=== PATIENT | female | born 1965 | race Caucasian/White ===

== ENCOUNTER 2017-09-12 11:30 | Outpatient (RCR) | payer OTHER, SELFPAY | END 2017-09-24 23:59 | LOC: NS 11:30 | PROVIDERS: Family Provider Family Medicine; PCP Family Medicine; Visit Provider Family Medicine | DX: E66.9 Obesity, unspecified (principal); Z68.34 Body mass index [BMI] 34.0-34.9, adult; Z71.3 Dietary counseling and surveillance | CPT/HCPCS: 97803 ==

== ENCOUNTER → 2017-10-01 16:45 | Outpatient (CLI) | payer OTHER, SELFPAY ==
--- NOTE | 2017-10-01 16:49 | RAD_ITS ---
XR Chest 2 Views INDICATION: pre op, hx of high blood pressure COMPARISON: None FINDINGS: Heart size and pulmonary vascularity are within normal limits. The lungs are clear without evidence of airspace consolidation or pleural effusion. The osseous structures are grossly unremarkable. RAD/Chest PA and Lateral IMPRESSION: No radiographic evidence of acute intrathoracic disease. at 1709 Reported and signed by: Jen Oliver MD Electronically Signed: Jen Oliver MD at 16:07 EST Tel , Service support ,
[2017-10-01 18:27] LABS: Anion Gap 9 (5-15); BUN 20 mg/dL (7-18); BUN/Creat Ratio 23.9 RATIO (10-20); Chloride 102 mmol/L (98-107); Creatinine, Serum 0.84 mg/dL (0.55-1.02); EST Glomerular Filtration Rate 76 mL/min (>60); Est Glom Filt Rate - Afr Amer 92 mL/min (>60); Glucose 79 mg/dL (74-106); Potassium 3.7 mmol/L (3.5-5.1); Sodium Level 136 mmol/L (136-145)
[2017-10-01 18:34] LABS: Absolute Lymphocyte Count 2.41 X10^3/ul (0.83-4.51); Absolute Neutrophil Count 6.9 X10^3/uL (2.0-7.7); Basophil# 0.01 X10^3/uL; Basophil% 0.1 % (0-1); Eosinophil# 0.23 X10^3/uL; Eosinophils% 2.2 % (0-5); Hematocrit 45.6 % (37-47); Hemoglobin 15.3 g/dl (12.0-15.0); Lymphocyte # 2.41 X10^3/ul (4.0); Lymphocyte % 23.1 % (19-41); Mean Corp Hgb Conc 33.6 g/gl (32-36); Mean Corpuscular Hgb 31.4 pg (27.0-32.0); Mean Corpuscular Volume 93.4 fL (81-99); Mean Platelet Vol. 9.9 fl (6.2-12.0); Monocyte# 0.89 X10^3/uL; Monocyte% 8.5 % (0-10); Platelet Count 311 K/mm3 (150-450); RBC Distribution Width CV 12.5 % (11.6-14.6); RBC Distribution Width SD 42.7 fl (35.1-43.9); Red Blood Count 4.88 M/mm3 (4.2-5.4); White Blood Count 10.5 K/mm3 (4.4-11.0)
[2017-10-01 18:39] LABS: POSITIVE COUNT NO; POSITIVE DIFFERENTIAL NO; POSITIVE MORPHOLOGY NO; Partial Thromboplast Time 25.2 Seconds (24.1-36.2); Prothrombin Time (Protime)PT. 12.7 SECONDS (11.7-14.9)
== END ==
PROVIDERS: Family Provider Family Medicine; PCP Family Medicine; Visit Provider Family Medicine
DX: Z01.818 Encounter for other preprocedural examination (principal); I10 Essential (primary) hypertension
CPT/HCPCS: 36415; 71046; 80048; 85025; 85610; 85730

== ENCOUNTER 2017-10-10 08:30 | Outpatient (RCR) | payer OTHER, SELFPAY | END 2017-10-22 23:59 | LOC: NS 08:30 | PROVIDERS: Family Provider Family Medicine; PCP Family Medicine; Visit Provider Family Medicine | DX: E66.01 Morbid (severe) obesity due to excess calories (principal); Z68.34 Body mass index [BMI] 34.0-34.9, adult; Z71.3 Dietary counseling and surveillance | CPT/HCPCS: 97803 ==

== ENCOUNTER 2017-10-21 05:50 | Day surgery (SDC) | payer OTHER, SELFPAY ==
--- NOTE | 2017-10-09 11:01 | PCM.HP.BLA ---
History and Physical DATE OF SERVICE: 10/21/2017 SCHEDULED PROCEDURE: Right total hip arthroplasty HISTORY OF PRESENT ILLNESS: This is a 51-year-old female who is been having ongoing pain in the right hip for approximately 3 years. She states over the last year and a half it is significantly worsened. Patient states her pain is aching, sharp, stabbing, and sore. Going up and down stairs, walking any amount of distance increases her pain. Rest and sitting is temporarily helpful. Getting dressed, doing housework, and shopping all increase her pain and has difficulty accomplishing these tasks. Patient has tried conservative measures including rest, ice, and elevation with temporary relief. Patient has also tried corticosteroid injection ?2 with minimal relief on the first injection and no relief from the second injection. She has tried formal physical therapy and home exercises with no relief in symptoms. She has tried oral medications including Aleve or Advil which only gives her temporary relief. After failing conservative measures and discussing all treatment options with Drs. Britton, the patient would like to proceed with a right total hip arthroplasty. Patient does have medical history pertinent for hypertension. She currently denies any chest pain, shortness of breath, fevers chills, recent infection. We are obtaining surgical clearance from patient's primary care physician Dr. Gross. REVIEW OF SYSTEMS: ROS: Const: Denies change in appetite, fever, hard of hearing, vision problems and weight change CV: Denies chest pain, heart murmur, irregular heartbeat and peripheral vascular disease. Resp: Denies asthma, cough, pneumonia, sleep apnea, SOB, tuberculosis and wheezing. GI: Denies constipation, diarrhea, difficulty swallowing, heartburn, nausea, bloody stools and vomiting. : . (F Genital Sx) Urinary: denies incontinence. Musculo: Reports limp, trouble walking and weakness, but denies leg swelling. Skin: Denies Raynaud's, history of shingles and tattoo. Neuro: Denies ambulatory dysfunction, dizziness, numbness/tingling and tremor. Psych: Denies anxiety, depression, insomnia, mental illness and stress. Jose Raul/Lymph: Denies anemia, bleeding/bruising tendency and past transfusion. Reviewed, no changes. PAST MEDICAL HISTORY: Advance Care Plan: No Advance Directives Effective Date: 09/15/2017 PMH: Medical Problems: Hypercholesterolemia, High Blood Pressure Accidents: None Surgical Hx: Breast Reduction - (2006) [facility] Anesthesia Complications: None Assistive Devices: None Reviewed, no changes. 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 Personal Habits: Cigarette Use: Never Smoked Cigarettes.Alcohol: Occasionally.Drug Use: Denies Use.Enjoy Exercising: Exercises 1-3 X/Week. Reviewed, no changes. VITALS: Ht: 66 Wt: 212lb Wt k.163 BMI: 34.2 BP: 152/80 Pulse: 60 Resp: 16 T: 97.8 T: 36.6C ALLERGIES: No Known Drug Allergy MEDICATIONS: Oxycodone HCL 5 mg 1-2 by mouth every 4 hours, Famotidine 20 mg 1 by mouth every day, MS Contin 15 mg 1 by mouth twice a day, Promethazine HCL 12.5 mg 1-2 tablets by mouth every 6 hours, Atenolol 50 mg 1 tab PO daily, Crestor 5 mg 1 tab PO daily, Lo Loestrin Fe 1 MG-10 mcg / 10 mcg 1 by mouth every day PRE-OP EXAM: General appearance:NORMAL Other: Eyes: Conjunctivae and lids: NORMAL Pupils: ERR Ears, Nose, Mouth, and Throat: NORMAL Other: Inspection of lips, teeth and gums: NORMAL Other: Neck: Examination of neck: no masses noted. Respiratory: Assessment of respiratory effort: NORMAL Other: Ausculation of lungs: clear to ausculation no wheeses, ronchi or rales. Cardiovascular: Ausculation of heart: regular rate and rhythem, no mummurs, gallops or rubs. Exam of carotid arteries: NORMAL Other: Gastrointestinal: Exam of abdomen: soft, nontender, nondistended bowel sounds present. Lymphatic: Palpation of nodes in neck: NORMAL Other: Palpation of nodes in Axillae: NORMAL Other: Neurological: see below Psychiatric: Orientation to time, place and person: NORMAL Other: Mood and affect: NORMAL Other: PHYSICAL EXAMINATION: Patient walks with an antalgic gait. Patient has increased pain with range of motion of the right hip. Pain is increased with any flexion and internal rotation. Patient has limited internal rotation to neutral and external rotation to 30?. Flexion to 80?. Sensations intact light touch. IMAGING STUDIES: Attained at [facility] [place] on October 08, 2017 including AP pelvis, AP right hip, and crossfire lateral right hip reveals severe osteoarthritis of the right hip with severe joint space narrowing, subchondral sclerosis, and osteophyte formation. No lytic or blastic lesions appreciated. No acute findings for fracture. IMPRESSION: 1. Severe right hip osteoarthritis 2. Hypertension 3. Hypercholesterolemia PLAN: Dr. Britton did discuss and review with the patient all treatment options including surgical versus nonsurgical. Patient wishes to proceed with above-stated procedure. Potential risks, benefits, and complications of this procedure were discussed in detail including but not limited to , infection, nerve and blood vessel damage, persistent pain, numbness, tingling, paresthesias, blood clot, pulmonary embolism, and requirement for further surgery. The patient expressed full understanding has no further questions for the doctor. Patient does agree to proceed with the above-stated procedure and has signed the surgery consent form. ___ I have re-examined the patient. There are no clinical changes since date of exam. ___ See progress notes for changes. ___ Dictated on admission Date: Time: Signature:
[2017-10-09 15:31] VITALS: BP 129/76; PULSE 67; RESP 16; TEMP 36.3; O2SAT 94; BMI 34.5
[2017-10-21] VITALS (10 sets, daily range): BP systolic 123–146; BP diastolic 68–93; PULSE 58–76; RESP 12–16; TEMP 36.1–36.8; O2SAT 93–98; BMI 34.5
[2017-10-21] MEDS: Acetaminophen 500 MG Tablet 1000 MG PO ×2 (06:33→12:51)
[2017-10-21] MEDS: oxyCODONE HCl Cr 10 MG Tablet PO (06:33)
[2017-10-21] MEDS: Celecoxib 200 MG Capsule 400 MG PO (06:33)
[2017-10-21] MEDS: Lactated Ringers 1,000 ML 999 ML IV (06:50)
[2017-10-21 06:54] LABS: Internal QC Validated? YES +Cl - CLEAR BKGD; Pregnancy, Urine Negative Negative
--- NOTE | 2017-10-21 07:45 | RAD_ITS ---
STUDY: X-RAY - PELVIS AND RIGHT HIP REASON FOR EXAM: Female, 51 years old. Right anterior hip replacement. TECHNIQUE: Radiological exam, hip, unilateral, with pelvis when performed; 1 view COMPARISON: None. FINDINGS: Intraoperative imaging was provided. The patient is status post right anterior total hip replacement. There is good alignment. RAD/Hip 1 view with Pelvis IMPRESSION: Right anterior hip replacement. There is good alignment. Electronically Signed: Aden Zacarias MD at 9:57 EST Tel [phone], Service support ,
[2017-10-21] MEDS: Cefazolin 2 GM in 0.9% Normal Saline 100 ML IV (07:51)
--- NOTE | 2017-10-21 07:56 | RAD_ITS ---
STUDY: X-RAY - PELVIS AND RIGHT HIP REASON FOR EXAM: Female, 51 years old. Total hip replacement. TECHNIQUE: Radiological exam, hip, unilateral, with pelvis when performed; 2 or 3 views. COMPARISON: Comparison is made with prior examination dated August 28, 2017. FINDINGS: There is a non-specific bowel gas pattern. There are multiple calcified phleboliths. Normal bilateral iliac wings, sacroiliac joints and visualized sacrum. Normal bilateral superior and inferior pubic rami. Normal pubic symphysis. Normal bilateral ischial tuberosities. The patient is status post right total hip replacement. There is good alignment. Moderate degree of degenerative changes of the left hip joint. RAD/Hip Min 2 Views (Portable) IMPRESSION: Status post right total hip replacement. There is good alignment. Electronically Signed: Aden Zacarias MD at 15:53 EST Tel [phone], Service support ,
--- NOTE | 2017-10-21 09:09 | OP.PCM_ITS ---
Report of Operation Date of Procedure: 10/21/17 Pre-Operative Diagnosis: Right hip primary osteoarthritis Post-Operative Diagnosis: Right hip primary osteoarthritis Surgery/Procedure Performed:: Right direct anterior total hip replacement Description of Surgical Findings:: Stable hip with equal leg lengths soaping department supervisor: Kurtis Davila Type of Anesthesia:: Spinal Anesthesiologist: Clement Ornelas Special Medications: 2 g Ancef, 1 g TXA at incision, 1 g TXA closure, 10 mg Decadron, joint cocktail (5 mg Duramorph, 30 mL of 0.5% Ropivicaine, 1000 units of epinephrine, 30 mg of Toradol), 1 additional gram Ancef at closure Specimen's removed: Bony cuts Estimated Blood Loss (mL): 150 Fluids Replaced: 130 milliliters crystalloid0 Description of Procedure: Components used: 1. Accolade 2 Golconda femoral stem size 3 127? 2. Ashkan trident acetabular shell size 54 mm 3. Golconda X3 polyethylene E 4. Ashkan Biolox delta 36mm, 0mm femoral head Brief history operative indications: 51 yo f who failed conservative measures for their hip osteoarthritis. X-rays were consistent with osteoarthritis including joint space narrowing, osteophyte formation and subchondral cysts. Total hip replacement was discussed with the patient with risks and benefits including but not limited to blood loss, DVTs, PEs, neurovascular damage, dislocation, general risks of anesthesia including loss of life. Patient demonstrated an understanding medical clearance is obtained the patient was consented for surgery. Procedure: On the date of procedure the patient's R hip was marked in the preoperative area. Patient was then taken back to the operating room where anesthesia assumed control of the C-spine and airway and administered anesthetic. Patient was transferred to the operating table and placed in the supine position. The hips were placed at the break of the bed and a sacral bump was placed. The R lower extremity was then prepped out in a sterile fashion using chlorhexidine while the surgeon scrubbed. The PA was vital in the positioning of the patient. Upon reentering the room the R lower extremity was draped in the standard orthopedic fashion and the incision was marked. A timeout was called and everyone agreed upon the side, the site, the procedure be performed, antibody given, and patient's identity. At this time incision was made through skin, subcutaneous tissue, and fat down to fascia. The fascia was then incised and the TFL was retracted laterally. A retractor was placed on the lateral border of the femoral neck. Attention was directed to the inferior portion of the approach and all crossing vessels were identified and appropriately coagulated. A retractor was then placed on the medial portion of the femoral neck. The anterior capsule was then cleared of all soft tissue and then H shaped capsulotomy was made. The retractors were then placed inside the capsule. The femoral neck was identified and a cleanup cut was made. At this time a power corkscrew was used to remove the femoral head. Attention was then turned toward the acetabulum where the soft tissues were appropriately retracted and the acetabulum was sequentially reamed to 53 mm. A 54 mm cup was then selected and impacted into place. Acetabular liner was impacted into place and locking mechanism was verified. The position of the acetabular cup was then verified under live fluoroscopy. Attention was then turned to the femur. Soft tissue releases on the medial and lateral femoral neck were appropriately done, the leg was externally rotated and lateralized. A Soto retractor was placed medially and proximally to the greater trochanter this allowed appropriate visualization and exposure of the femoral canal. Rongeour was then used to remove excess lateral bone. A canal finder and entry broach were used to open the proximal canal. Once we verified we were down the femoral canal we subsequently broached up to a size 3 femur. The appropriate neck was placed in the previously selected head was trialed with a 0 mm neck. Traction was pulled and the hip was reduced with internal rotation. Once it was appropriately reduced and stability was checked. There was minimal shuck, equal leg lengths and appropriate stability with hyperextension and external rotation as well as with 90? flexion and internal rotation. Fluoroscopy was then also used to verify the position of the components and leg lengths using the contralateral side for comparison. The trial components were then dislocated the proximal femur was again exposed and the components were removed from the wound. The final components were verified and opened. The wound was copiously irrigated out with normal saline. The acetabulum was checked for any residual debris. The final components were placed and impacted. Traction and internal rotation were again used to reduce the hip. After adequate reduction the hip remained stable with appropriate leg lengths. The final components were once again checked with live fluoroscopy and were found to be satisfactory. The wound was then copiously irrigated with normal saline once more, and hemostasis was obtained. Closure was then done using #1 Vicryl runner to close the fascia. A 2-0 vicryl interuppted sutures were used to close the subcutaneous skin. A 3-0 Monocryl and Steri-Strips were used for final skin closure. A Silverlon dressing was placed. Patient was awakened by anesthesia and transferred to the [facility]. Patient was then transferred to the PACU for recovery. Postoperative plan: Patient will get 24 hours postop antibiotics. Patient will get in-house physical therapy and will be weight-bear as tolerated. Patient will follow up in office in 2 weeks for a wound check and x-rays. During the course of the procedure the physician after school program assistant played a vital role. His intimate knowledge of my steps in the procedure aided in safe and expedient completion of the procedure. The PA played a vital rolls in positioning particularly in obtaining the appropriate positioning of the sacral bump. The PA was also vital in the retraction of soft tissues during the exposure and especially the femoral work as this is a vital part of the procedure to prevent complications and fractures. The PA was also vital and protecting soft tissues during times of bony cuts and reaming. He also played a vital role in closure with my direct supervision. The PA was also important during reduction and dislocation of the joint and trials intraoperatively. Grafts/Implants Used: Golconda Accolade 2 - Complications none - Admit VTE Documentation VTE Present on Admission: No VTE Mechan Device Prophylaxis: SCD's, Thigh High PATRICIA Hose VTE Pharm Prophylaxis ordered?: Yes
[2017-10-21] MEDS: Lactated Ringers 1,000 ML 125 ML IV (10:38)
[2017-10-21] MEDS: Cefazolin 1 GM/50 ML BAG IV (12:47)
== END 2017-10-21 14:38 | disposition home or self-care (01) ==
LOC: SDC 05:51 → AC 05:51 → MS3 05:53 → AC 10:30
PROVIDERS: Family Provider Family Medicine; PCP Family Medicine; Visit Provider Specialist
PROC: (CPT 27284; principal; 2017-10-21 07:20)
DX: M16.11 Unilateral primary osteoarthritis, right hip (principal); I10 Essential (primary) hypertension; E78.00 Pure hypercholesterolemia, unspecified; Z79.899 Other long term (current) drug therapy
CPT/HCPCS: 27130; 73501; 73502; 76000; 81025; 87081; 97162; J7120; A4216; J2405

== ENCOUNTER → 2017-11-03 07:49 | Outpatient (CLI) | payer OTHER, SELFPAY ==
--- NOTE | 2017-11-03 07:51 | RAD_ITS ---
STUDY: X-RAY - PELVIS AND RIGHT HIP REASON FOR EXAM: Female, 51 years old. Status post right hip replacement. TECHNIQUE: Radiological exam, hip, unilateral, with pelvis when performed; 2 or 3 views. COMPARISON: Comparison is made with prior examination dated October 21, 2017. FINDINGS: The patient is status post right total hip replacement. There is good alignment. There is evidence of degenerative changes of the left hip joint with marginal osteophyte along the medial aspect of the left femoral neck. RAD/Hip 2-3 Views with Pelvis IMPRESSION: Status post right hip replacement. There is good alignment. Electronically Signed: Aden Zacarias MD at 8:42 EDT Tel [phone], Service support ,
== END ==
PROVIDERS: Family Provider Family Medicine; PCP Family Medicine; Visit Provider Physician Assistant Surgical
DX: Z96.641 Presence of right artificial hip joint (principal)
CPT/HCPCS: 73502

== ENCOUNTER 2017-12-19 10:58 | Outpatient (RCR) | payer OTHER, SELFPAY | END 2017-12-22 23:59 | LOC: NS 10:58 | PROVIDERS: Family Provider Family Medicine; PCP Family Medicine; Visit Provider Family Medicine | DX: E66.9 Obesity, unspecified (principal); Z68.34 Body mass index [BMI] 34.0-34.9, adult; Z71.3 Dietary counseling and surveillance | CPT/HCPCS: 97803 ==

== ENCOUNTER 2017-12-25 16:00 | Outpatient (RCR) | payer OTHER, SELFPAY ==
--- NOTE | 2017-11-19 16:09 | HP.PTEVAL_ITS ---
Patient's Visit Information JARROD JOSUE is a 52 year old F referred to Physical Therapy by CHRISTPOHE Corley with a diagnosis of RIGHT ARTIFICIAL HIP REPLACEMNT. Date of Evaluation: 11/19/17 Physical Therapist: Jeff Pereyra, PT, - Visit Plan Frequency: 2x /Week Duration: 8WEEKS Plan: S/P DAMION anterior approach Sep. GAIT,BALANCE TRAINING,PRE'S HIP/ KNEE,ROM - Subjective Subjective: This 52 y/o female presensts to physical therapy with right DAMION on Oct 21 2017 at [facility] as outpatient thus D/C same day. Patient was WBAT with FWW then progressed to cane after 2weeks. Patient [facility] for 3weeks. Patient denies parathesia/tingling. Denies pain. Patient ascends/descends one step at at time. Patient not driving. HOME SITUTAION: [place] with 2 steps. SOCAIL: . 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 GAIT: ambulates with straight cane with 2 point gait. Ambulate with reciprocal pattern normal monica. BALANCE: good- cane. NUERO: denies parathesia/tingling,inact. MMT: quads/hams 4/5 ,hip flexion 4/5 ankle 4/5. AROM: knee flexion 0-120 degrees ,hip flexion 100 degrees ,abd 30 degrees. STAIRS: ascend/desend 12 steps with rail and cane - Goals Goal 1:: Independant with HEP Goal Time Frame: 4-6 Weeks Goal 2:: Ambulate no device normal monica community distances Goal Time Frame: 4-6 Weeks Goal 3:: Patient ascend/descend 12 step alternating without rail Goal Time Frame: 4-6 Weeks Goal 4:: Patient return to porior level of function/housework tasks and job demands without limiations Goal Time Frame: 4-6 Weeks - Rehabilitation Potential Physical Therapy Diagnosis: This patient underwent s/p TKA with decrease ROM, strength which impairs function with standing,walking and return job demands. Rehabilitation Potential: Good - Anticipated Interventions Patient/Client Instruction: Educate patient on: Condition, Plan of Care For the Purpose of:: To decrease pain, To increase ROM, To improve muscle performance and motor function, To improve ability to perform ADL's, To increase tolerance to activity/condition/position, To improve performance and independence with ADL's, To improve ability of physical actions for home/ community/work/leisure, To improve gait and locomotor functions, To improve health of tissue, To decrease soft tissue restriction, To increase flexibility/ ROM, To improve safety with gait, To improve tolerance to ADL's Therapeutic Exercise to Include: Strength training, Gait and locomotor training , Active ROM Comment: HIP/KNEE. ANTERIOR APPROACH For the Purpose of:: To decrease pain, To increase ROM, To improve muscle performance and motor function, To improve ability to perform ADL's, To increase tolerance to activity/condition/position, To improve ability of physical actions for home/community/work/leisure, To improve gait and locomotor functions, To improve health of tissue, To decrease soft tissue restriction, To improve endurance, To improve balance, To improve safety with gait, To improve tolerance to ADL's Cryotherapy (ice pack, ice massage): Yes For the Purpose of:: To decrease pain Thank you for the opportunity to evaluate your patient. For Medicare and Medicare HMO plans, please review the plan of care and approve it. It will need to be FAXED BACK to us at [phone] for Medicare purposes. Please let me know if there are questions or concerns regarding this plan of care. Physician Signature: Date:
--- NOTE | 2017-12-25 17:23 | HP.PTDCSUM_ITS ---
HP - PT D/C Summary It has been my pleasure to treat JARROD JOSUE under orders from CHRISTOPHE Corley, for the diagnosis of RIGHT ARTIFICIAL HIP REPLACEMNT for a total of 9 visit(s). Discharge Date: 12/25/17 Please see the following information for a summary of their discharge status. - Subjective Subjective: Doing great..no problems. Back to normal activity and job demands - Pain Right Hip Pain Intensity (Out of 10): 0 - Overall Improvement % Improvement: 90 - Objective Objective/Function: POSTURE: mild foward posture. GAIT: normal monica. STAIRS : acsend/desend 12 steps with one rail. MMT: quads/hams 4/5 ,hip flexion/abd 4/ 5 - Goals Goal 1:: Independant with HEP Goal Progress: Goal Met Goal 2:: Ambulate no device normal monica community distances Goal Progress: Goal Met Goal 3:: Patient ascend/descend 12 step alternating without rail Goal Progress: Goal Met Goal 4:: Patient return to porior level of function/housework tasks and job demands without limiations Goal Progress: Goal Met - Plan Plan: D/C - D/C Information If there are questions or concerns regarding this patient's physical therapy, please feel free to call me at [phone]. Thank you for the referral of this patient. Sincerely, Jeff Pereyra, PT,
== END 2017-12-25 19:00 | disposition home or self-care (01) ==
LOC: PT 16:00
PROVIDERS: Family Provider Family Medicine; PCP Family Medicine; Visit Provider Physician Assistant Surgical
DX: Z96.641 Presence of right artificial hip joint (principal)
CPT/HCPCS: 97110; 97162

== ENCOUNTER 2018-01-02 09:19 | Outpatient (RCR) | payer OTHER, SELFPAY | END 2018-01-22 23:59 | LOC: NS 09:19 | PROVIDERS: Family Provider Family Medicine; PCP Family Medicine; Visit Provider Family Medicine | DX: E66.9 Obesity, unspecified (principal); Z68.34 Body mass index [BMI] 34.0-34.9, adult; Z71.3 Dietary counseling and surveillance | CPT/HCPCS: 97803 ==

== ENCOUNTER → 2018-05-27 14:43 | Outpatient (CLI) | payer OTHER, SELFPAY ==
--- NOTE | 2018-05-27 14:45 | RAD_ITS ---
STUDY: X-RAY - PELVIS AND LEFT HIP REASON FOR EXAM: Female, 52 years old. Left hip pain. TECHNIQUE: Radiological exam, hip, unilateral, with pelvis when performed; 2 or 3 views. COMPARISON: None. FINDINGS: There is a non-specific bowel gas pattern. Normal visualized soft tissue structures. There are degenerative changes of the sacroiliac joint. Normal bilateral superior and inferior pubic rami. Normal pubic symphysis. Normal bilateral ischial tuberosities. There are degenerative changes of the left hip characterized by joint space narrowing, subchondral sclerosis and marginal osteophytes. There is a right hip arthroplasty. RAD/HIP, UNI W/ Pelvis 2-3 Views IMPRESSION: Degenerative changes of the left hip. Electronically Signed: Yin Wilhelm MD at 22:45 EDT Tel , Service support ,
== END ==
PROVIDERS: Family Provider Family Medicine; PCP Family Medicine; Referring Provider Specialist; Visit Provider Specialist
DX: M25.552 Pain in left hip (principal)
CPT/HCPCS: 73502

== ENCOUNTER → 2018-06-09 09:16 | Outpatient (CLI) | payer OTHER, SELFPAY ==
--- NOTE | 2018-06-09 09:19 | RAD_ITS ---
PROCEDURE: Fluoroscopic guided Hip Injection DATE: June 09, 2018. INDICATION: Female, 52 years old. Left hip pain. PHYSICIAN: Aden Zacarias M.D. MEDICATIONS: 6 mg of the betamethasone and 3 cc of 1% lidocaine. 2% lidocaine administered subcutaneously for local anesthesia. ACCESS SITE: Left hip. NEEDLE: 22-gauge spinal needle. FLUOROSCOPY TIME (if supplied): (0:42) minutes/seconds FINDINGS: The risks, benefits, and alternatives to the procedure were explained to the patient. The specific risks of bleeding, infection, and neurovascular injury were detailed and accepted. Witnessed informed consent was obtained. A 22-gauge spinal needle was positioned under radiographic fluoroscopic localization. Approximately 2 cc of Isovue-300 instilled for localization purposes. Medication was then injected. The patient tolerated the procedure well without any immediate complications. The patient was placed supine with head elevated and returned to the floor in stable condition. RAD/Inj/Asp Sumeet Jt Should/Hip/Knee IMPRESSION: 1. Successful fluoroscopic guided hip injection. Electronically Signed: Aden Zacarias MD at 14:07 EDT Tel [phone], Service support ,
== END ==
PROVIDERS: Family Provider Family Medicine; PCP Family Medicine; Referring Provider Specialist; Visit Provider Specialist
DX: M16.12 Unilateral primary osteoarthritis, left hip (principal)
CPT/HCPCS: 20610; 77002; Q9965; J0702

== ENCOUNTER → 2018-06-24 10:05 | Outpatient (CLI) | payer OTHER, SELFPAY ==
--- NOTE | 2018-06-24 10:20 | RAD_ITS ---
STUDY: X-RAY - PELVIS AND RIGHT HIP REASON FOR EXAM: Female, 52 years old. Total hip replacement. TECHNIQUE: Radiological exam, hip, unilateral, with pelvis when performed; 2 or 3 views. COMPARISON: None. FINDINGS: There is a non-specific bowel gas pattern. Normal visualized soft tissue structures. There is narrowing with cortical sclerosis and osteophyte formation of the sacroiliac joint consistent with degenerative osteoarthritic changes. Normal bilateral superior and inferior pubic rami. Normal pubic symphysis. Normal bilateral ischial tuberosities. The patient is status post total hip replacement. There is good alignment. Osteoarthritis of the left hip joint. RAD/HIP, UNI W/ Pelvis 2-3 Views IMPRESSION: Status post total right hip replacement. There is good alignment. Electronically Signed: Aden Zacarias MD at 11:04 EDT Tel [phone], Service support ,
== END ==
PROVIDERS: Family Provider Family Medicine; PCP Family Medicine; Referring Provider Specialist; Visit Provider Specialist
DX: Z96.641 Presence of right artificial hip joint (principal)
CPT/HCPCS: 73502

== ENCOUNTER 2018-07-15 19:38 | Emergency (ER) | payer OTHER, SELFPAY ==
[2018-07-15 19:39] VITALS: BP 172/99; PULSE 90; RESP 16; TEMP 36.6; O2SAT 94; BMI 37.1
--- NOTE | 2018-07-15 19:57 | ED.VISSUMM ---
- ER Visit Summary Date of Service: 07/15/18 Chief Complaint: Dysuria History of Present Illness: The patient is a 52 F presenting with dysuria. She states the symptoms started today. She has dysuria, frequency, and urgency. She denies hematuria. Denies fever. Denies back pain. She states she had previous similar symptoms with a UTI. Denies other complaints. Physical Examination: Vitals are stable. Patient is afebrile. Alert no acute distress. HEENT exam is unremarkable. Neck is supple. Lungs are clear and equal bilaterally. Heart is regular rate and rhythm. Abdomen is soft nontender nondistended. No guarding or rebound Back nontender Extremities are unremarkable. Skin is warm and dry. Remainder of exam is unremarkable. Emergency Department Course and Treatment: Urinalysis shows 25-50 white blood cells, 0-5 red blood cells. Patient is given Keflex and a prescription for Keflex. She is advised to follow-up with her primary care physician. Advised return to ED for worsening complaints. Disposition: Discharge home Impression: UTI This note was generated with [employer] dictation software. It may contain incorrect words, spelling, and punctuation that were not noted in review of the chart prior to signing ED Disposition - Plan for ED Patient: Disposition: Home or Assisted Living Chief Complaint: Complaint Instructions: ED UTI Cystitis Female Prescriptions: Cephalexin [Keflex] 500 mg PO BID #14 capsule Referrals: Boris Gross MD [Primary Care Provider] -
--- NOTE | 2018-07-15 20:26 | ED.DCSUM_ITS ---
- ER Visit Summary Date of Service: 07/15/18 Chief Complaint: Dysuria History of Present Illness: The patient is a 52 F presenting with dysuria. She states the symptoms started today. She has dysuria, frequency, and urgency. She denies hematuria. Denies fever. Denies back pain. She states she had prev ious similar symptoms with a UTI. Denies other complaints. Physical Examination: Vitals are stable. Patient is afebrile. Alert no acute distress. HEENT exam is unremarkable. Neck is supple. Lungs are clear and equal bilaterally. Heart is regular rate and rhythm. Abdomen is soft nontender nondistended. No guarding or rebound Back nontender Extremities are unremarkable. Skin is warm and dry. Remainder of exam is unremarkable. Emergency Department Course and Treatment: Urinalysis shows 25-50 white blood cells, 0-5 red blood cells. Patient is given Keflex and a prescription for Keflex. She is advised to follow-up with her primary care physician. Advised return to ED for worsening complaints. Disposition: Discharge home Impression: UTI This note was generated with [employer] dictation software. It may contain incorrect words, spelling, and punctuation that were not noted in review of the chart prior to signing ED Disposition - Plan for ED Patient: Disposition: Home or Assisted Living Chief Complaint: Complaint Instructions: ED UTI Cystitis Female Prescriptions: Cephalexin [Keflex] 500 mg PO BID #14 capsule Referrals: Boris Gross MD [Primary Care Provider] -
[2018-07-15 20:31] LABS: Bacteria 0 SEEN /hpf (None Seen); Color, Urine Straw (Yellow); Glucose, Dipstick Normal (Normal); Ketone-Dipstick Negative (Negative); Mucous, Urine 0 SEEN /hpf (<or=2+); Nitrite-Dipstick Negative (Negative); Occult Blood-Urine 250 /ul (Negative); Protein-Dipstick 30 mg/dl (Negative); Specific Gravity, Urine 1.005 (1.002-1.030); Urine Bilirubin Dipstick Negative (Negative); Urine Clarity Cloudy (Clear); Urine Urobilinogen Normal (Normal)
[2018-07-15 20:32] LABS: Leukocyte Esterase-Dipstick 500 /ul (Negative)
[2018-07-15 20:38] LABS: Red Blood Cells-Urine 0-5 SEEN /hpf (0-5); Squamous Epithelial Cells - UA 0-5 SEEN /hpf (5-10); White Blood Cells 25-50 SEEN /hpf (0-5)
--- NOTE | 2018-07-15 20:45 | ED.DEP ---
ED Disposition - Plan for ED Patient: Chief Complaint: Complaint Instructions: ED UTI Cystitis Female Prescriptions: Cephalexin [Keflex] 500 mg PO BID #14 capsule Referrals: Boris Gross MD [Primary Care Provider] -
[2018-07-15] MEDS: Cephalexin 250 MG Capsule 500 MG PO (20:59)
[2018-07-15 21:00] VITALS: PULSE 80; RESP 14; O2SAT 96
== END 2018-07-15 21:00 | disposition home or self-care (01) ==
PROVIDERS: Emergency Provider Emergency Medicine; Family Provider Family Medicine; PCP Family Medicine
DX: N39.0 Urinary tract infection, site not specified (principal); I10 Essential (primary) hypertension; Z79.899 Other long term (current) drug therapy
CPT/HCPCS: 81001; 99283

== ENCOUNTER → 2018-07-21 15:28 | Outpatient (CLI) | payer OTHER, SELFPAY ==
[2018-07-15 19:39] VITALS: BMI 37.1
--- NOTE | 2018-07-21 15:30 | BI_ITS ---
MAMMOGRAPHY - BILATERAL SCREENING REASON FOR EXAM: Female, 52 years old. Routine annual screening examination. PERTINENT HISTORY: Non-contributory. History of bilateral breast reduction surgery. TECHNIQUE: Digital bilateral breast sue (3D mammographic acquisition) in the CC and MLO projections. 2-D mediolateral oblique (MLO) and craniocaudad (CC) views of both breasts were obtained. CAD: Full Field Digital Mammography with Computer Added Detection was performed. COMPARISON: Comparison is made with prior study dated July 11, 2017 and July 09, 2016. FINDINGS: Breast Composition: The breasts are almost entirely fatty. There are no dominant masses or suspicious calcifications. No other significant abnormalities are identified. There has been no significant change since the prior study. BI/SCREENING MAMM (CAD), BILAT IMPRESSION: Stable bilateral screening mammogram. Yearly follow-up mammogram recommended. (A) ASSESSMENT CATEGORY: BIRADS Category 1: Negative. A letter regarding these results will be sent to the patient by the facility within 30 days. Approximately 10% of breast cancers are not detected by mammography. A normal mammogram should not delay biopsy of a clinically suspicious abnormality. [id number] Electronically Signed: Aden Zacarias MD at 8:16 EST Tel [phone], Service support ,
--- OUTSIDE RECORDS SUMMARY | 2018-09-16 08:26 | XMS RPT_ITS ---
:1965 Author Organization [place] Support Name Relationship Address Phone JOHN CONNOLLY Unavailable [address] + [place] [address] [facility] Unavailable [address] + [place] [address] JOHN CONNOLLY Unavailable [address] + [place] [address] WC Unavailable [address] + [place] [address] JOHN CONNOLLY Unavailable [address] + [place] [address] [facility] Unavailable [address] + [place] [address] JOHN CONNOLLY Unavailable [address] + [place] [address] [address] Unavailable [address] + [place] [address] JOHN CONNOLLY Unavailable [address] + [place] [address] WC Unavailable [address] + [place] [address] JOHN CONNOLLY Unavailable [address] + [place] [address] [address] Un[address] + [place] [address] JOHN CONNOLLY Unavailable [address] + [place] [address] WC Unavailable [address] + [place] [address] JOHN CONNOLLY Unavailable [address] + [place] [address] [facility] Unavailable [address] + [place] [address] JOSELO, JOHN Unavailable [address] [phone] [place] [address] [facility] Unavailable [address] + [place] [address] JOSELO, JOHN Unavailable [address] [phone] [place] [address] [facility] Unavailable [address] + [place] [address] JOSELO, JOHN Unavailable [address] [phone] [place] [address] [facility] Unavailable [address] + [place] [address] JOSELO, JOHN Unavailable [address] [phone] [place] [address] [facility] Unavailable [address] + [place] [address] JOSELO, [place] Unavailable [address] [phone] [place] [address] [facility] Unavailable [address] + [place] [address] JOSELO, JOHN Unavailable [address] [phone] [place] [address] [facility] Unavailable [address] + [place] [address] JOSELO, JOHN Unavailable [address] [phone] [place] [address] [facility] Unavailable [address] + [place] [address] JOSELO, JOHN Unavailable [address] [phone] [place] [address] [facility] Unavailable [address] + [place] [address] JOSELO, JOHN Unavailable [address] [phone] [place] [address] WC Unavailable [address] + [place] [address] JOHN CONNOLLY Unavailable [address] [phone] [place] [address] [facility] Unavailable [address] + [place] [address] [place] CONNOLLY Unavailable [address] [phone] [place] [address] [facility] Unavailable [address] + [place] [address] Care Team Providers Name Role Phone MARAH FRIAS Attending Unavailable Ronald Gross Attending Unavailable Ranney, Christopher Primary Care Unavailable Ronald Gross Attending Unavailable Ranney, Christopher Referring Unavailable Ranney, Christopher Primary Care Unavailable RanRonald brown Attending Unavailable Ranney, Christopher Referring Unavailable Ranney, Christopher Primary Care Unavailable RanneyMayoer Attending Unavailable Ranney, Christopher Referring Unavailable Ranney, Christopher Primary Care Unavailable Power Britton Attending Unavailable Power Britton Referring Unavailable Ranney, Christopher Primary Care Unavailable RanneyMayoer Attending Unavailable Ranney, Christopher Referring Unavailable Ranney, Christopher Primary Care Unavailable Kurtis Davila PA-C Attending Unavailable Kurtis Davila PA-C Referring Unavailable Ranney, Christopher Primary Care Unavailable RanneyMayoer Attending Unavailable Ranney, Christopher Referring Unavailable Ranney, Christopher Primary Care Unavailable Kurtis Davila PA-C Attending Unavailable Ranney, Christopher Primary Care Unavailable Power Britton Referring Unavailable RanneyRonald Attending Unavailable Ranney, Christopher Referring Unavailable Ranney, Christopher Primary Care Unavailable RanneyMayoer Attending Unavailable Ranney, Christopher Referring Unavailable Ranney, Christopher Primary Care Unavailable ASSESSMENT, HEALTH RISK Attending Unavailable ASSESSMENT, HEALTH RISK Referring Unavailable Ranney, Christopher Primary Care Unavailable [place] Salinas Attending Unavailable Ranney, Christopher Referring Unavailable Power Britton Attending Unavailable Power Britton Referring Unavailable Ranney, Christopher Primary Care Unavailable Power Britton Attending Unavailable Power Britton Referring Unavailable Ranney, Christopher Primary Care Unavailable Power Britton Attending Unavailable Power Britton Referring Unavailable [facility] Unavailable AMINATA TORREZ Attending Unavailable AMINATA TORREZ Referring Unavailable [facility] Unavailable Ivonne Casey Attending Unavailable [facility], [facility] Attending Unavailable Ranzenda, Christopher Referring Unavailable [facility], [facility] Unavailable PROBLEMS PROBLEMS DATE TYPE CONDITION / CODE ATTENDING STATUS SOURCE 08/05/2018 Unknown Z96.641 - Presence AMINATA TORREZ Active [place] of right [facility] hip joint / Hospital Z96.641(ICD-10) Repository 05/27/2018 Unknown M25.552 - Pain in Power Britton Active [place] left hip / Community M25.552(ICD-10) Hospital Repository 01/23/2018 Unknown E66.9 - Obesity, Ginny, Active [place] unspecified / [facility] E66.9(ICD-10) Hospital Repository 10/01/2017 Unknown Z01.818 - Encounter Ginny, Active [place] for other [facility] preprocedural Hospital examination / Repository Z01.818(ICD-10) 10/01/2017 Unknown I10 - Essential Ginny, Active [place] (primary) [facility] hypertension / Hospital I10(ICD-10) Repository 08/28/2017 Unknown M25.551 - Pain in Ginny, Active [place] right hip / [facility] M25.551(ICD-10) Hospital Repository 09/01/2017 Unknown M76.31 - Iliotibial Ginny, Active [place] band syndrome, [facility] right leg / Hospital M76.31(ICD-10) Repository PROCEDURES PROCEDURES No Procedure Records FoundRESULTS RESULTS SCREENING MAMM (CAD), Observed: 07/21/2018 Status: F Source: [place] BIL[place] 3:31 PM [facility] HOSPITAL REPOSITORY [facility] Imaging Services [address] [place] [address] SCREENING MAMM (CAD), BILAT MR#: [id number] Acct: [id number] Name: SHERON CONNOLLY Rep #: [id number] : 1965 F 52 From: Aden Zacarias MD PCP: Ronald Gross MD Status: REG CLI Study: SCREENING MAMM (CAD), BILAT Date of Exam: 07/21/18 Exam# [id number] Ordering Dr: Boris Gross MD MAMMOGRAPHY - BILATERAL SCREENING REASON FOR EXAM: Female, 52 years old. Routine annual screening examination. PERTINENT HISTORY: Non-contributory. History of bilateral breast reduction surgery. TECHNIQUE: Digital bilateral breast sue (3D mammographic acquisition) in the CC and MLO projections. 2-D mediolateral oblique (MLO) and craniocaudad (CC) views of both breasts were obtained. CAD: Full Field Digital Mammography with Computer Added Detection was performed. COMPARISON: Comparison is made with prior study dated July 11, 2017 and July 09, 2016. FINDINGS: Breast Composition: The breasts are almost entirely fatty. There are no dominant masses or suspicious calcifications. No other significant abnormalities are identified. There has been no significant change since the prior study. BI/SCREENING MAMM (CAD), BILAT IMPRESSION: Stable bilateral screening mammogram. Yearly follow-up mammogram recommended. (A) ASSESSMENT CATEGORY: BIRADS Category 1: Negative. A letter regarding these results will be sent to the patient by the facility within 30 days. Approximately 10% of breast cancers are not detected by mammography. A normal mammogram should not delay biopsy of a clinically suspicious abnormality. [id number] Electronically Signed: Aden Zacarias MD at 8:16 EST Tel [phone], Service support , CC: Ronald Gross MD Artificial Breast Fabricator: Signed EMERGENCY DEPARTMENT Observed: 07/15/2018 Status: F Source: [place] SUMMARY 10:[address] [facility] REPOSITORY [facility] Medical Records Department [address] [place] [address] Emergency Department Summary 07/15/181956 MR#: [id number] Acct: [id number] Name: SHERON CONNOLLY Rep #: [id number] : 1965 52 From: Ivonne Casey MD PCP: Ronald Gross MD Status: DEP ER - ER Visit Summary Date of Service: 07/15/18 Chief Complaint: Dysuria History of Present Illness: The patient is a 52 F presenting with dysuria. She states the symptoms started today. She has dysuria, frequency, and urgency. She denies hematuria. Denies fever. Denies back pain. She states she had previous similar symptoms with a UTI. Denies other complaints. Physical Examination: Vitals are stable. Patient is afebrile. Alert no acute distress. HEENT exam is unremarkable. Neck is supple. Lungs are clear and equal bilaterally. Heart is regular rate and rhythm. Abdomen is soft nontender nondistended. No guarding or rebound Back nontender Extremities are unremarkable. Skin is warm and dry. Remainder of exam is unremarkable. Emergency Department Course and Treatment: Urinalysis shows 25-50 white blood cells, 0-5 red blood cells. Patient is given Keflex and a prescription for Keflex. She is advised to follow-up with her primary care physician. Advised return to ED for worsening complaints. Disposition: Discharge home Impression: UTI This note was generated with [employer] dictation software. It may contain incorrect words, spelling, and punctuation that were not noted in review of the chart prior to signing ED Disposition - Plan for ED Patient: Disposition: Home or Assisted Living Chief Complaint: Complaint Instructions: ED UTI Cystitis Female Prescriptions: Cephalexin [Keflex] 500 mg PO BID #14 capsule Referrals: Boris Gross MD [Primary Care Provider] - What to do if you have Problems For any increased pain, shortness of breath, bleeding, nausea or vomiting, chest pain, or any unexpected problems, contact your Primary Care Provider. Call [facility] ([phone]) or report to the closest Emergency Room. Call 911 if necessary. 07/15/18 9973 <Electronically signed by Ivonne Casey MD> Date Ivonne Casey MD Cosigner Signature (If Indicated): Date CC: Ronald Gross MD DISCHARGE INSTRUCTION Observed: 07/15/2018 Status: F Source: [place] 8:[address] [facility] REPOSITORY [facility] Medical Records Department [address] [place] [address] Discharge Instruction 07/15/182044 MR#: [id number] Acct: [id number] Name: SHERON CONNOLLY Rep #: [id number] : 1965 52 From: Ivonne Casey MD PCP: Ronald Gross MD Status: REG ER ED Disposition - Plan for ED Patient: Chief Complaint: Complaint Instructions: ED UTI Cystitis Female Prescriptions: Cephalexin [Keflex] 500 mg PO BID #14 capsule Referrals: Boris Gross MD [Primary Care Provider] - What to do if you have Problems For any increased pain, shortness of breath, bleeding, nausea or vomiting, chest pain, or any unexpected problems, contact your Primary Care Provider. Call [facility] ([phone]) or report to the closest Emergency Room. Call 911 if necessary. 07/15/182045 <Electronically signed by Ivonne Casey MD> Date Ivonne Casey MD Cosigner Signature (If Indicated): Date CC: Ronald Gross MD URINALYSIS, COMPLETE Collected: 07/15/2018 Status: F Source: [place] 7:[address] [facility] REPOSITORY Order Comment: How was Urine Obtained? CLEAN CATCH TYPE CODE TESTS RESULT OUT OF RANGE REFERENCE UNITS LAB L400.3000 Yellow COLOR Normal Straw LAB L400.3050 Clear Normal CLARITY Cloudy LAB L400.3200 Normal mg/dl Normal GLUCOSE, UR Normal LAB L400.3300 Negative mg/dL Normal BILIRUBIN URINE Negative LAB L400.3400 Negative mg/dl Normal KETONE UR Negative LAB L400.3465 1.002-1.030 Normal SP.GR. DIPSTX 1.005 LAB L400.3550 5.0 - 8.0 pH UR Normal 6.0 LAB L400.3600 Negative mg/dl High PROT 30 DIPSTX LAB L400.3700 Normal mg/dl Normal UROBILI Normal LAB L400.3750 Negative Normal NITRITE UR Negative LAB L400.3780 Negative /ul High OCCULT BLOOD-UR 250 LAB L400.3800 Negative /ul High LEUK ESTERASE 500 LAB L400.4050 0-5 /hpf WBC Normal 25-50 SEEN LAB L400.4100 0-5 /hpf Normal RBC-UA 0-5 SEEN LAB L400.4150 5-10 /hpf SQUAM Normal EPI 0-5 SEEN LAB L400.4300 None Seen /hpf 0 Normal BACTERIA SEEN LAB L400.4350 <or=2+ /hpf 0 Normal MUCUS, URINE SEEN Performed By: #### L400.0001 #### [facility] [address] [place], [place], [address] INITAL EVALUATION (1) Observed: 07/14/2018 Status: F Source: [place] - [place] 1:[address] [facility] REPOSITORY [facility] Physical Therapy [address] [place], [place] [address] Fax REHABILITATION SERVICES INITIAL EVALUATION MR#: [id number] Acct: [id number] Name: SHERON CONNOLLY Rep #: [id number] : 1965 52 From: Jeff Pereyra PT, Cert. MDT, OCS Referring DrSadiq: Status: REG RCR Insurance: [facility] [employer] SELF PAY INSURANCE Patient's Visit Information SHERON CONNOLLY is a 52 year old F referred to Physical Therapy by Power Britton with a diagnosis of RIGHT ARTIFICIAL HIP JOINT,WEAKNESS,PAIN RIGHT HIP. Date of Evaluation: 07/08/18 Physical Therapist: Jeff Androsik, PT, - Visit Plan Frequency: 2x /Week Duration: 2 Weeks Plan: ROM,STRENGTHENING HIP/KNEE, NUSTEP,MODALITIES PRN - Subjective Subjective: This 52 y/o female presenst to physical therapy with right THR anterior approach Oct 21 2017. Patient fell about 1 month slipped on buttuck walking dog. Then about 1 week later getting out of car caused shooting pain in groin. Patient made appointment with DR. Britton recommended PT. Patient has pain anterior lateral hip region.Patient symptoms worse with getting out of bed care and stairs. Symptoms better with MEDROL pack. Patient sleeping good at night. Patient had injection left hip. Ambulated with no cane. Patient sated other issue is weakness. Patient doing aternating stairs. Denies parathesia/tingling. Patient impairments affects QOL and jod demnads. SOCAIL: . 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 GAIT: ambulates with no device reciprocal pattern mild decrease stance. BALANCE: good. PALPATION: anterior lateral medius. NEURO: denies parathesia/tingling. AROM:hip flexion 100 degrees,abduction 35 ,knee 0-120 degrees. MMT: quads/hams 4/5,hip flexion 3+/5 soreness,abduction 4-/5. STAIRS: alternating - Goals Goal 1:: Independant with HEP. Goal Time Frame: 2-4 Weeks Goal 2:: Noramilize gait pattern Goal Time Frame: 2-4 Weeks Goal 3:: Patient increase strength hip flexors and abd 4/5 to improve stairs. Goal Time Frame: 2-4 Weeks Goal 4:: Patient to improve ADLS and job demands with no limitations Goal Time Frame: 2-4 Weeks Goal 5:: Patient to improve LFES to 5-10 points to i mprove QOL Goal Time Frame: 2-4 Weeks - Rehabilitation Potential Physical Therapy Diagnosis: This patient under went s/p THR Sep ,patient fell slipped landed on buttuck then eventually developed anterior hip pain x-rays - . But with has pain and weakness hip flexors impairs gait and function Rehabilitation Potential: Good - Anticipated Interventions Patient/Client Instruction: Educate patient on: Condition, Plan of Care For the Purpose of:: To decrease pain, To increase ROM, To improve muscle performance and motor function, To improve ability to perform ADL's, To improve ability of physical actions for home/community/work/leisure, To improve gait and locomotor functions, To improve health of tissue, To decrease soft tissue restriction, To increase flexibility/ROM, To improve ability to perform tasks related to life management Therapeutic Exercise to Include: Strength training, Postural training, Flexibilty training, Passive ROM, Active ROM Comment: HIP/KNEE For the Purpose of:: To decrease pain, To increase ROM, To improve muscle performance and motor function, To increase tolerance to activity/condition/position, To improve ability of physical actions for home/community/work/leisure, To improve health of tissue, To decrease soft tissue restriction, To increase flexibility/ROM, To improve ability to perform tasks related to life management TENS: Yes IF ES: Yes Cryotherapy (ice pack, ice massage): Yes Thermo therapy (hot pack): Yes Ultrasound (thermal/non thermal): Yes For the Purpose of:: To decrease pain, To decrease swelling/inflammation, To improve nutrient delivery to tissue, To increase oxygenation perfusion, To improve health of tissue Thank you for the opportunity to evaluate your patient. For Medicare and Medicare HMO plans, please review the plan of care and approve it. It will need to be FAXED BACK to us at [phone] for Medicare purposes. Please let me know if there are questions or concerns regarding this plan of care. Physician Signature: Date: <Electronically signed by Jeff Pereyra PT, Cert. MERT, OCS> 07/14/18 8133 CC: Ronlad Gross MD; OUT OF TOWN DOCTOR MIKI Signed For Medicare only, by signing this I certify the plan of care. Physicians Signature Date HIP, UNI W/ PELVIS Observed: 06/24/2018 Status: F Source: [place] 2-3 VIEWS 10:13 AM [facility] HOSPITAL REPOSITORY [facility] Imaging Services [address] [place] [address] HIP, UNI W/ Pelvis 2-3 Views MR#: [id number] Acct: [id number] Name: SHERON CONNOLLY Rep #: [id number] : 1965 F 52 From: Aden Zacarias MD PCP: Ronald Gross MD Status: REG CLI Study: HIP, UNI W/ Pelvis 2-3 Views Date of Exam: 06/24/18 Exam# [id number] Ordering Dr: Power Britton MD STUDY: X-RAY - PELVIS AND RIGHT HIP REASON FOR EXAM: Female, 52 years old. Total hip replacement. TECHNIQUE: Radiological exam, hip, unilateral, with pelvis when performed; 2 or 3 views. COMPARISON: None. FINDINGS: There is a non-specific bowel gas pattern. Normal visualized soft tissue structures. There is narrowing with cortical sclerosis and osteophyte formation of the sacroiliac joint consistent with degenerative osteoarthritic changes. Normal bilateral superior and inferior pubic rami. Normal pubic symphysis. Normal bilateral ischial tuberosities. The patient is status post total hip replacement. There is good alignment. Osteoarthritis of the left hip joint. RAD/HIP, UNI W/ Pelvis 2-3 Views IMPRESSION: Status post total right hip replacement. There is good alignment. Electronically Signed: Aden Zacarias MD at 11:04 EDT Tel [phone], Service support , CC: Ronald Gross MD; Power Britton MD Artificial Breast Fabricator: Signed INJ/ASP ARACELI JT Observed: 06/09/2018 Status: F Source: [place] SHOULD/HIP/KNEE 9:19 [facility] Imaging Services [address] [place] [address] Inj/Asp Araceli Jt Should/Hip/Knee MR#: [id number] Acct: [id number] Name: SHERON CONNOLLY Rep #: [id number] : 1965 F 52 From: Aden Zacarias MD PCP: Ronald Gross MD Status: REG CLI Study: Inj/Asp Araceli Jt Should/Hip/Knee Date of Exam: 06/09/18 Exam# [id number] Ordering Dr: Power Britton MD PROCEDURE: Fluoroscopic guided Hip Injection DATE: June 09, 2018. INDICATION: Female, 52 years old. Left hip pain. PHYSICIAN: Aden Zacarias M.D. MEDICATIONS: 6 mg of the betamethasone and 3 cc of 1% lidocaine. 2% lidocaine administered subcutaneously for local anesthesia. ACCESS SITE: Left hip. NEEDLE: 22-gauge spinal needle. FLUOROSCOPY TIME (if supplied): (0:42) minutes/seconds FINDINGS: The risks, benefits, and alternatives to the procedure were explained to the patient. The specific risks of bleeding, infection, and neurovascular injury were detailed and accepted. Witnessed informed consent was obtained. A 22-gauge spinal needle was positioned under radiographic fluoroscopic localization. Approximately 2 cc of Isovue-300 instilled for localization purposes. Medication was then injected. The patient tolerated the procedure well without any immediate complications. The patient was placed supine with head elevated and returned to the floor in stable condition. RAD/Inj/Asp Araceli Jt Should/Hip/Knee IMPRESSION: 1. Successful fluoroscopic guided hip injection. Electronically Signed: Aden Zacarias MD at 14:07 EDT Tel [phone], Service support , CC: Ronald Gross MD; Power Britton MD Artificial Breast Fabricator: Signed HIP, UNI W/ PELVIS Observed: 05/27/2018 Status: F Source: [place] 2-3 VIEWS [address] [facility] REPOSITORY [facility] Imaging Services [address] [place] [address] HIP, UNI W/ Pelvis 2-3 Views MR#: [id number] Acct: [id number] Name: SHERON CONNOLLY Rep #: [id number] : 1965 F 52 From: Yin Wilhelm MD PCP: Ronald Gross MD Status: REG CLI Study: HIP, UNI W/ Pelvis 2-3 Views Date of Exam: 05/27/18 Exam# [id number] Ordering Dr: Power Britton MD STUDY: X-RAY - PELVIS AND LEFT HIP REASON FOR EXAM: Female, 52 years old. Left hip pain. TECHNIQUE: Radiological exam, hip, unilateral, with pelvis when performed; 2 or 3 views. COMPARISON: None. FINDINGS: There is a non-specific bowel gas pattern. Normal visualized soft tissue structures. There are degenerative changes of the sacroiliac joint. Normal bilateral superior and inferior pubic rami. Normal pubic symphysis. Normal bilateral ischial tuberosities. There are degenerative changes of the left hip characterized by joint space narrowing, subchondral sclerosis and marginal osteophytes. There is a right hip arthroplasty. RAD/HIP, UNI W/ Pelvis 2-3 Views IMPRESSION: Degenerative changes of the left hip. Electronically Signed: Yin Wilhelm MD at 22:45 EDT Tel , Service support , CC: Ronald Gross MD; Power Britton MD Artificial Breast Fabricator: Signed URGENT CARE VISIT Observed: 05/10/2018 Status: F Source: [place] REPORT 9:[address] [facility] REPOSITORY Now [address] [place] [address] OFFICE VISIT Date of Service: 05/10/18 MR#: [id number] Acct: [id number] Name: SHERON CONNOLLY Rep #: [id number] : 1965 Provider: CHRISTOPHE Salinas Age/Sex: 52/F Location: [facility] Status: Signed Intake Vital Signs05/10/18 Height 5 ft 7.5 in Intake Visit Reasons: Rash Chief Complaint: Poison elodia Allergies No Known Allergies Allergy (Verified 05/10/18 09:07) Medications Atenolol [Tenormin (Beta Debra)] 50 mg PO DAILY 07/09/17 [History Confirmed 05/10/18] Rosuvastatin Calcium [Crestor] 5 mg PO QHS 07/09/17 [History Confirmed 05/10/18] PFSH Family History Other Heart disease Social History Smoking Status: Never smoker alcohol intake: never HPI HPI Chief Complaint: Poison elodia Details: SHERON CONNOLLY, is a 52 F who presents to the office today for a poison elodia rash on her arms,legs, torso and neck. She has been using topical cortisone cream and Benadryl with minimal relief. The rash is itchy and is burning. She is having a difficult time sleeping. She denies breathing or swallowing difficulties. ROS Const Constitutional: No chills or fever(s) Eyes Eyes: No change in vision ENT ENT: No ear pain, sore throat, nasal congestion or nasal discharge Resp Respiratory: No cough, chest congestion, shortness of breath or wheezing Cardio Cardiology: No chest pain at rest or chest pain with exertion Gastro GI: No abdominal pain, diarrhea, vomiting or nausea/dyspepsia Musc Musculoskeletal: No back pain or abnormal walking Skin Skin: Positive for rash and redness Neuro Neurology: No confusion, abnormal walking or abnormal speech Psych Psychiatric: No confusion Aller/Imm Allergy/Immunologic: No wheezing Exam Skin Rashes: rashes noted (Erythematous papular rash of the limbs, torso, and neck) Assessment AND Plan 1. Rash R21 2. Contact dermatitis due to plant L25.5 Orders Orders: Medications New: Coding Level of Care Code Off vis,est,level 4 Diagnoses Rash R21 Contact dermatitis due to plant L25.5 05/10/18 0915 <Electronically signed by John SAEED> Date John Brad Recinosigner Signature: Date (if applicable) CC: CBC, EMPLOYEE Collected: 04/23/2018 Status: F Source: [place] 7:[address] [facility] REPOSITORY TYPE CODE TESTS RESULT OUT OF RANGE REFERENCE UNITS LAB L100.1000 4.4-11.0 K/mm3 High WBC 11.2 LAB L100.1200 4.2-5.4 M/mm3 Normal RBC 4.62 LAB L100.1300 12.0-15.0 g/dl Normal HGB 14.6 LAB L100.1400 37-47 % Normal HCT 43.3 LAB L100.1500 81-99 fL Normal MCV 93.7 LAB L100.1600 27.0-32.0 pg Normal MCH 31.6 LAB L100.1700 32-36 g/gl Normal MCHC 33.7 LAB L100.1810 11.6-14.6 % Normal RDW CV 12.8 LAB L100.1820 35.1-43.9 fl Normal RDW SD 43.6 LAB L100.1900 150-450 K/mm3 Normal PLT 269 LAB L100.2000 6.2-12.0 fl Normal MPV 9.8 LAB L100.2110 47-70 % Normal NEUT% 68.7 LAB L100.2210 19-41 % Normal LY% 20.4 LAB L100.2310 0-10 % Normal MONO% 8.3 LAB L100.2410 0-5 % Normal EO% 2.4 LAB L100.2510 0-1 % Normal BASO% 0.1 LAB L100.2620 2.0-7.7 X10 3/uL Normal Absolute Neut 7.7 LAB L100.2720 0.83-4.51 X10 3/ul Normal Absolute Lymph 2.27 Performed By: #### L100.0200 #### [facility] [address] [place], [address] URINALYSIS, EMPLOYEE Collected: 04/23/2018 Status: F Source: [place] 7:[address] [facility] REPOSITORY TYPE CODE TESTS RESULT OUT OF RANGE REFERENCE UNITS LAB L400.3000 Yellow COLOR Normal Yellow LAB L400.3050 Clear Normal CLARITY Clear LAB L400.3200 Normal mg/dl Normal GLUCOSE, UR Normal LAB L400.3300 Negative mg/dL Normal BILIRUBIN URINE Negative LAB L400.3400 Negative mg/dl Normal KETONE UR Negative LAB L400.3465 1.002-1.030 Normal SP.GR. DIPSTX 1.010 LAB L400.3550 5.0 - 8.0 pH UR Normal 8.0 LAB L400.3600 Negative mg/dl PROT Normal DIPSTX Negative LAB L400.3700 Normal mg/dl Normal UROBILI Normal LAB L400.3750 Negative Normal NITRITE UR Negative LAB L400.3780 Negative /ul Normal OCCULT BLOOD-UR Negative LAB L400.3800 Negative /ul LEUK Normal ESTERASE Negative Performed By: #### L400.0100 #### [facility] [address] [place], [address] NICOTINE URINE DRUG Collected: 04/23/2018 Status: F Source: [place] SCREEN 7:[address] [facility] REPOSITORY TYPE CODE TESTS RESULT OUT OF RANGE REFERENCE UNITS LAB L505.6250 TO BE Normal CONFIRMED Result Comment: CONFIRMATORY TESTING FOR ALL POSITIVE URINE DRUG SCREEN RESULTS WILL ONLY BE SENT OUT UPON PHYSICIAN ORDER. The results of Urine Drug Screen methods provide only preliminary analytical test results. A more specific alternate chemical method must be used in order to obtain a confirmed analytical result. Gas chromatography/mass spectrometery (GC/MS) is the preferred confirmatory method. Clinical consideration and professional judgement should be applied to any drug of abuse test result, particularly when preliminary positive results are used. LAB L505.6270 <200 ng/mL Normal COT DRG Negative SCREEN Result Comment: Cotinine is the first-stage metabolite of Nicotine. Performed By: #### L505.6240 #### [facility] [address] [place], [address] EMPLOYEE PROFILE Collected: 04/23/2018 Status: F Source: [place] 7:09 [facility] REPOSITORY TYPE CODE TESTS RESULT OUT OF RANGE REFERENCE UNITS LAB L501.0100 74-106 mg/dL Normal GLU 87 Result Comment: Please note revised GLUCOSE reference range effective 2017. LAB L501.1000 7-18 mg/dL High BUN 20 LAB L501.1100 0.55-1.02 mg/dL Normal CREAT,SERUM 0.84 Result Comment: The validity of the calculated GFR AND GFRAA in patients over 70 years has not been determined. Clinical correlation is essential. LAB L501.1110 >60 mL/min Normal EST GFR 76 Result Comment: Non- GFR Calc LAB L501.1115 >60 mL/min Normal EST GFR - AA 92 Result Comment: GFR Calc LAB L501.1300 10-20 RATIO High BUN/CRE 23.9 LAB L501.1400 2.6-6.0 mg/dL High URIC 6.8 Result Comment: The drugs N-Acetylcysteine and Metamizole may falsely depress this assay. LAB L501.1500 6.4-8.2 g/dL Normal T PROT 6.8 LAB L501.1800 3.2-5.0 g/dL Normal ALB 3.3 LAB L501.1950 2.2-4.2 g/dL Normal GLOB 3.5 LAB L501.2000 0.9-2.4 RATIO Normal A/G 0.9 LAB L501.2200 8.5-10.1 mg/dL Normal CA 8.5 LAB L501.2300 2.5-4.9 mg/dL Normal PHOS 3.2 LAB L501.4100 15-37 U/L Normal AST 18 LAB L501.4305 45-117 U/L Normal ALK P 51 LAB L501.4405 13-56 U/L Normal ALT 24 LAB L501.4600 0.20-1.00 mg/dL Normal T BILI 0.50 LAB L501.4700 0.00-0.30 mg/dL Normal D BILI 0.15 LAB L501.4900 200 mg/dL Normal CHOL 175 Result Comment: <200 mg/dL Desirable 200-240 mg/dL Borderline >240 mg/dL High Risk LAB L501.5000 mg/dL Normal TRIG 112 Result Comment: The drugs N-Acetylcysteine and Metamizole may falsely depress this assay. Serum Triglycerides Reference Interval Normal <150 mg/dL Borderline high 150 - 199 mg/dL High 200 - 499 mg/dL Very High > or = 500 mg/dL LAB L501.5300 136-145 mmol/L Normal NA 138 LAB L501.5600 3.5-5.1 mmol/L Normal K 3.8 LAB L501.5900 98-107 mmol/L Normal CL 104 LAB L501.6100 21.0-32.0 mmol/L Normal CO2 25.0 LAB L501.6200 5-15 Normal 9 GAP LAB L501.6400 mg/dL Normal HDL 53 Result Comment: The drugs N-Acetylcysteine and Metamizole may falsely depress this assay. Reference Range HDL <40 mg/dL Low HDL Cholesterol HDL >or= 60 mg/dL High HDL Cholesterol LAB L501.6475 Normal CHOL:HDL 3.30 LAB L501.6500 0-130 mg/dL Normal LDL 100 LAB L501.6600 5-40 mg/dL Normal VLDL 22 LAB L504.2610 84-246 U/L Normal LDH 164 Performed By: #### L500.2900 #### [facility] [address] [place], [address] PT D/C SUMMARY (1) Observed: 12/26/2017 Status: F Source: [place] 2:[address] [facility] REPOSITORY [facility] [address] [place] [address]. [address] [place], [place] [address] Fax REHABILITATION SERVICES DISCHARGE SUMMARY MR#: [id number] Acct: [id number] Name: SHERON CONNOLLY Rep #: [id number] : 1965 52 From: Jeff Pereyra PT, Cert. MDT, OCS Referring Dr.: Kurtis SAEED Status: REG RCR Insurance: [facility] [employer] SELF PAY INSURANCE HP - PT D/C Summary It has been my pleasure to treat SHERON CONNOLLY under orders from CHRISTOPHE Corley, for the diagnosis of RIGHT ARTIFICIAL HIP REPLACEMNT for a total of 9 visit(s). Discharge Date: 12/25/17 Please see the following information for a summary of their discharge status. - Subjective Subjective: Doing great..no problems. Back to normal activity and job demands - Pain Right Hip Pain Intensity (Out of 10): 0 - Overall Improvement % Improvement: 90 - Objective Objective/Function: POSTURE: mild foward posture. GAIT: normal monica. STAIRS: acsend/desend 12 steps with one rail. MMT: quads/hams 4/5 ,hip flexion/abd 4/5 - Goals Goal 1:: Independant with HEP Goal Progress: Goal Met Goal 2:: Ambulate no device normal monica community distances Goal Progress: Goal Met Goal 3:: Patient ascend/descend 12 step alternating without rail Goal Progress: Goal Met Goal 4:: Patient return to porior level of function/housework tasks and job demands without limiations Goal Progress: Goal Met - Plan Plan: D/C - D/C Information If there are questions or concerns regarding this patient's physical therapy, please feel free to call me at [phone]. Thank you for the referral of this patient. Sincerely, Jeff Pereyra PT, <Electronically signed by Jeff Pereyra PT, Cert. T, OCS> 12/26/17 3947 CC: Ronald Gross MD; Kurtis SAEED; Power Britton MD MIKI Signed INITAL EVALUATION (1) Observed: 11/20/2017 Status: F Source: [place] - PT 2:[address] [facility] REPOSITORY [facility] [address] [place] [address] [address] [place] [address] Fax REHABILITATION SERVICES INITIAL EVALUATION MR#: [id number] Acct: [id number] Name: SHERON CONNOLLY Rep #: [id number] : 1965 52 From: Jeff Pereyra PT CertSadiq PAINTING, OCS Referring Dr.: Kurtis SAEED Status: REG RCR Insurance: [facility] [employer] SELF PAY INSURANCE Patient's Visit Information SHERON CONNOLLY is a 52 year old F referred to Physical Therapy by CHRISTOPHE Corley with a diagnosis of RIGHT ARTIFICIAL HIP REPLACEMNT. Date of Evaluation: 11/19/17 Physical Therapist: Jeff Androsik, PT, - Visit Plan Frequency: 2x /Week Duration: 8WEEKS Plan: S/P DAMION anterior approach Sep. GAIT,BALANCE TRAINING,PRE'S HIP/KNEE,ROM - Subjective Subjective: This 52 y/o female presensts to physical therapy with right DAMION on Oct 21 2017 at [facility] as outpatient thus D/C same day. Patient was WBAT with FWW then progressed to cane after 2weeks. Patient [facility] PT for 3weeks. Patient denies parathesia/tingling. Denies pain. Patient ascends/descends one step at at time. Patient not driving. HOME SITUTAION: [place] with 2 steps. SOCAIL: . 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 GAIT: ambulates with straight cane with 2 point gait. Ambulate with reciprocal pattern normal monica. BALANCE: good- cane. NUERO: denies parathesia/tingling,inact. MMT: quads/hams 4/5 ,hip flexion 4/5 ankle 4/5. AROM: knee flexion 0-120 degrees ,hip flexion 100 degrees ,abd 30 degrees. STAIRS: ascend/desend 12 steps with rail and cane - Goals Goal 1:: Independant with HEP Goal Time Frame: 4-6 Weeks Goal 2:: Ambulate no device normal monica community distances Goal Time Frame: 4-6 Weeks Goal 3:: Patient ascend/descend 12 step alternating without rail Goal Time Frame: 4-6 Weeks Goal 4:: Patient return to porior level of function/housework tasks and job demands without limiations Goal Time Frame: 4-6 Weeks - Rehabilitation Potential Physical Therapy Diagnosis: This patient underwent s/p TKA with decrease ROM,strength which impairs function with standing,walking and return job demands. Rehabilitation Potential: Good - Anticipated Interventions Patient/Client Instruction: Educate patient on: Condition, Plan of Care For the Purpose of:: To decrease pain, To increase ROM, To improve muscle performance and motor function, To improve ability to perform ADL's, To increase tolerance to activity/condition/position, To improve performance and independence with ADL's, To improve ability of physical actions for home/community/work/leisure, To improve gait and locomotor functions, To improve health of tissue, To decrease soft tissue restriction, To increase flexibility/ROM, To improve safety with gait, To improve tolerance to ADL's Therapeutic Exercise to Include: Strength training, Gait and locomotor training, Active ROM Comment: HIP/KNEE. ANTERIOR APPROACH For the Purpose of:: To decrease pain, To increase ROM, To improve muscle performance and motor function, To improve ability to perform ADL's, To increase tolerance to activity/condition/position, To improve ability of physical actions for home/community/work/leisure, To improve gait and locomotor functions, To improve health of tissue, To decrease soft tissue restriction, To improve endurance, To improve balance, To improve safety with gait, To improve tolerance to ADL's Cryotherapy (ice pack, ice massage): Yes For the Purpose of:: To decrease pain Thank you for the opportunity to evaluate your patient. For Medicare and Medicare HMO plans, please review the plan of care and approve it. It will need to be FAXED BACK to us at [phone] for Medicare purposes. Please let me know if there are questions or concerns regarding this plan of care. Physician Signature: Date: <Electronically signed by Jeff Pereyra PT, Cert. T, OCS> 11/20/17 1421 CC: Ronald Gross MD; Kurtis SAEED; Power Britton MD MIKI Signed For Medicare only, by signing this I certify the plan of care. Physicians Signature Date HIP 2-3 VIEWS WITH Observed: 11/03/2017 Status: F Source: [place] PEL[place] 7:[address] [facility] REPOSITORY [facility] Imaging Services [address] [place] [address] Hip 2-3 Views with Pelvis MR#: [id number] Acct: [id number] Name: SHERON CONNOLLY Rep #: [id number] : 1965 F 51 From: Aden Zacarias MD PCP: Ronald Gross MD Status: REG CLI Study: Hip 2-3 Views with Pelvis Date of Exam: 11/03/17 Exam# [id number] Ordering Dr: Kurtis Davila PA-C STUDY: X-RAY - PELVIS AND RIGHT HIP REASON FOR EXAM: Female, 51 years old. Status post right hip replacement. TECHNIQUE: Radiological exam, hip, unilateral, with pelvis when performed; 2 or 3 views. COMPARISON: Comparison is made with prior examination dated October 21, 2017. FINDINGS: The patient is status post right total hip replacement. There is good alignment. There is evidence of degenerative changes of the left hip joint with marginal osteophyte along the medial aspect of the left femoral neck. RAD/Hip 2-3 Views with Pelvis IMPRESSION: Status post right hip replacement. There is good alignment. Electronically Signed: Aden Zacarias MD at 8:42 EDT Tel [phone], Service support , CC: Ronald Gross MD; Kurtis SAEED Artificial Breast Fabricator: Signed PROGRESS Observed: 10/29/2017 Status: COMPLETED Source: [place] 8:[address] [facility] REPOSITORY HNO ID: [id number] Author: Bety Deleon Service: (none) Author Type: (none) Type: Progress Notes Filed: 10/29/2017 8:43 AM Note Text: pap logged,letter sent. Bety Lir OPERATIVE REPORT Observed: 10/21/2017 Status: F Source: [place] 9:[address] [facility] REPOSITORY [facility] Medical Records Department [address] [place] [address] Operative Report 10/21/17 0905 MR#: [id number] Acct: [id number] Name: SHERON CONNOLLY Rep #: [id number] : 1965 51 From: Power Britton MD PCP: Ronald Gross MD Status: REG [facility] Location: [place] [address] Report of Operation Date of Procedure: 10/21/17 Pre-Operative Diagnosis: Right hip primary osteoarthritis Post-Operative Diagnosis: Right hip primary osteoarthritis Surgery/Procedure Performed:: Right direct anterior total hip replacement Description of Surgical Findings:: Stable hip with equal leg lengths breakfast supervisor: Kurtis Davila Type of Anesthesia:: Spinal Anesthesiologist: Clement Ornelas Special Medications: 2 g Ancef, 1 g TXA at incision, 1 g TXA closure, 10 mg Decadron, joint cocktail (5 mg Duramorph, 30 mL of 0.5% Ropivicaine, 1000 units of epinephrine, 30 mg of Toradol), 1 additional gram Ancef at closure Specimen's removed: Bony cuts Estimated Blood Loss (mL): 150 Fluids Replaced: 130 milliliters crystalloid0 Description of Procedure: Components used: 1. Accolade 2 [place] femoral stem size 3 127 2. [place] trident acetabular shell size 54 mm 3. [place] X3 polyethylene E 4. Ashkan Biolox delta 36mm, 0mm femoral head Brief history operative indications: 51 yo f who failed conservative measures for their hip osteoarthritis. X-rays were consistent with osteoarthritis including joint space narrowing, osteophyte formation and subchondral cysts. Total hip replacement was discussed with the patient with risks and benefits including but not limited to blood loss, DVTs, PEs, neurovascular damage, dislocation, general risks of anesthesia including loss of life. Patient demonstrated an understanding medical clearance is obtained the patient was consented for surgery. Procedure: On the date of procedure the patient's R hip was marked in the preoperative area. Patient was then taken back to the operating room where anesthesia assumed control of the C-spine and airway and administered anesthetic. Patient was transferred to the operating table and placed in the supine position. The hips were placed at the break of the bed and a sacral bump was placed. The R lower extremity was then prepped out in a sterile fashion using chlorhexidine while the surgeon scrubbed. The PA was vital in the positioning of the patient. Upon reentering the room the R lower extremity was draped in the standard orthopedic fashion and the incision was marked. A timeout was called and everyone agreed upon the side, the site, the procedure be performed, antibody given, and patient's identity. At this time incision was made through skin, subcutaneous tissue, and fat down to fascia. The fascia was then incised and the TFL was retracted laterally. A retractor was placed on the lateral border of the femoral neck. Attention was directed to the inferior portion of the approach and all crossing vessels were identified and appropriately coagulated. A retractor was then placed on the medial portion of the femoral neck. The anterior capsule was then cleared of all soft tissue and then H shaped capsulotomy was made. The retractors were then placed inside the capsule. The femoral neck was identified and a cleanup cut was made. At this time a power corkscrew was used to remove the femoral head. Attention was then turned toward the acetabulum where the soft tissues were appropriately retracted and the acetabulum was sequentially reamed to 53 mm. A 54 mm cup was then selected and impacted into place. Acetabular liner was impacted into place and locking mechanism was verified. The position of the acetabular cup was then verified under live fluoroscopy. Attention was then turned to the femur. Soft tissue releases on the medial and lateral femoral neck were appropriately done, the leg was externally rotated and lateralized. A Soto retractor was placed medially and proximally to the greater trochanter this allowed appropriate visualization and exposure of the femoral canal. Rongeour was then used to remove excess lateral bone. A canal finder and entry broach were used to open the proximal canal. Once we verified we were down the femoral canal we subsequently broached up to a size 3 femur. The appropriate neck was placed in the previously selected head was trialed with a 0 mm neck. Traction was pulled and the hip was reduced with internal rotation. Once it was appropriately reduced and stability was checked. There was minimal shuck, equal leg lengths and appropriate stability with hyperextension and external rotation as well as with 90 flexion and internal rotation. Fluoroscopy was then also used to verify the position of the components and leg lengths using the contralateral side for comparison. The trial components were then dislocated the proximal femur was again exposed and the components were removed from the wound. The final components were verified and opened. The wound was copiously irrigated out with normal saline. The acetabulum was checked for any residual debris. The final components were placed and impacted. Traction and internal rotation were again used to reduce the hip. After adequate reduction the hip remained stable with appropriate leg lengths. The final components were once again checked with live fluoroscopy and were found to be satisfactory. The wound was then copiously irrigated with normal saline once more, and hemostasis was obtained. Closure was then done using #1 Vicryl runner to close the fascia. A 2-0 vicryl interuppted sutures were used to close the subcutaneous skin. A 3-0 Monocryl and Steri-Strips were used for final skin closure. A Silverlon dressing was placed. Patient was awakened by anesthesia and transferred to the [facility]. Patient was then transferred to the PACU for recovery. Postoperative plan: Patient will get 24 hours postop antibiotics. Patient will get in-house physical therapy and will be weight-bear as tolerated. Patient will follow up in office in 2 weeks for a wound check and x-rays. During the course of the procedure the physician salon assistant played a vital role. His intimate knowledge of my steps in the procedure aided in safe and expedient completion of the procedure. The PA played a vital rolls in positioning particularly in obtaining the appropriate positioning of the sacral bump. The PA was also vital in the retraction of soft tissues during the exposure and especially the femoral work as this is a vital part of the procedure to prevent complications and fractures. The PA was also vital and protecting soft tissues during times of bony cuts and reaming. He also played a vital role in closure with my direct supervision. The PA was also important during reduction and dislocation of the joint and trials intraoperatively. Grafts/Implants Used: [place] Accolade 2 - Complications none - Admit VTE Documentation VTE Present on Admission: No VTE Mechan Device Prophylaxis: SCD's, Thigh High PATRICIA Hose VTE Pharm Prophylaxis ordered?: Yes 10/21/17908 <Electronically signed by Power Britton MD> Date Power Britton MD CC: Ronald Gross MD; Power Britotn MD Signed HIP MIN 2 VIEWS Observed: 10/21/2017 Status: F Source: [place] (PORTABLE) 7:[address] [facility] REPOSITORY [facility] Imaging Services [address] [place] [address] Hip Min 2 Views (Portable) MR#: [id number] Acct: [id number] Name: SHERON CONNOLLY Rep #: [id number] : 1965 F 51 From: Aden Zacarias MD PCP: Ronald Gross MD Status: [facility] Study: Hip Min 2 Views (Portable) Date of Exam: 10/21/17 Exam# [id number] Ordering Dr: Power Britton MD STUDY: X-RAY - PELVIS AND RIGHT HIP REASON FOR EXAM: Female, 51 years old. Total hip replacement. TECHNIQUE: Radiological exam, hip, unilateral, with pelvis when performed; 2 or 3 views. COMPARISON: Comparison is made with prior examination dated August 28, 2017. FINDINGS: There is a non-specific bowel gas pattern. There are multiple calcified phleboliths. Normal bilateral iliac wings, sacroiliac joints and visualized sacrum. Normal bilateral superior and inferior pubic rami. Normal pubic symphysis. Normal bilateral ischial tuberosities. The patient is status post right total hip replacement. There is good alignment. Moderate degree of degenerative changes of the left hip joint. RAD/Hip Min 2 Views (Portable) IMPRESSION: Status post right total hip replacement. There is good alignment. Electronically Signed: Aden Zacarias MD at 15:53 EST Tel [phone], Service support , CC: Ronald Gross MD; Power Britton MD Artificial Breast Fabricator: Signed ,URINE Collected: 10/21/2017 Status: F Source: [place] 6:[address] [facility] REPOSITORY TYPE CODE TESTS RESULT OUT OF REFERENCE UNITS RANGE LAB L400.8000 Negative Normal HCGUQUAL Negative Result Comment: Very dilute urine specimens, as indicated by a low specific gravity, may not contain representative government relations levels of hCG. If is still suspected, a first morning urine specimen should be collected 48 hours later and tested. Performed By: #### L400.7600 #### [facility] [address] [place], [address] HIP 1 VIEW WITH Observed: 10/20/2017 Status: F Source: [place] PELVIS 11:[address] [facility] REPOSITORY [facility] Imaging Services [address] [place] [address] Hip 1 view with Pelvis MR#: [id number] Acct: [id number] Name: SHERON CONNOLLY Rep #: [id number] : 1965 F 51 From: Aden Zacarias MD PCP: Ronald Gross MD Status: REG [facility] Study: Hip 1 view with Pelvis Date of Exam: 10/21/17 Exam# [id number] Ordering Dr: Power Britton MD STUDY: X-RAY - PELVIS AND RIGHT HIP REASON FOR EXAM: Female, 51 years old. Right anterior hip replacement. TECHNIQUE: Radiological exam, hip, unilateral, with pelvis when performed; 1 view COMPARISON: None. FINDINGS: Intraoperative imaging was provided. The patient is status post right anterior total hip replacement. There is good alignment. RAD/Hip 1 view with Pelvis IMPRESSION: Right anterior hip replacement. There is good alignment. Electronically Signed: Aden Zacarias MD at 9:57 EST Tel [phone], Service support , CC: Ronald Gross MD; Power Britton MD Artificial Breast Fabricator: Signed CYTOLOGY Observed: 10/16/2017 Status: C Source: [place] 3:[address] [facility] REPOSITORY ADDITIONAL PROCEDURES PRESENT Specimen originated from [facility] Specimen #: [id number] Submitting Physician: MARAH ELAINE MD SPECIMEN SUBMITTED A: CERVICAL, SCREENING, FLUID FINAL DIAGNOSIS A. CERVICAL, SCREENING, FLUID Satisfactory for interpretation. No endocervical component. Negative for intraepithelial lesion or malignancy. This specimen has been analyzed by the ThinPrep Imaging System, an automated imaging and review system, which assists the laboratory in evaluating cells on ThinPrep Pap tests. Following automated imaging, selected pond from every slide are reviewed by a mission support specialist. BOB Gomez(ASCP) (Electronic Signature) ADDITIONAL PROCEDURE(S) HUMAN PAPILLOMA VIRUS Date Ordered: 10/20/2017 Date Reported: 10/21/2017 Procedure Results and Interpretation Negative for HPV DNA high risk type 16 by PCR. Negative for HPV DNA high risk type 18 by PCR. Negative for HPV DNA high risk types: 31,33,35,39,45,51,52,56,58,59,66,68 by PCR. This test was developed and its performance characteristics determined by [facility] [place]'s [facility] [place] ([facility]). It has not been cleared or approved by the FDA. -[facility] is regulated under CLIA as qualified to perform high-complexity testing. This test is used for clinical purposes. It should not be regarded as investigational or for research. CLINICAL DATA Drug Induced Amenorrhea ROUTINE EXAM, HPV Testing: Yes, automatic HPV patients over 30 STAINS A: CERVICAL, SCREENING, FLUID THIN PREP THERAPEUTIC CONSULTANT Mahnaz Hinds M.D., Milk Hauler Date of Report: 10/28/2017 Date of Procedure: 10/16/2017 Date of Receipt: 10/20/2017 Submitted by: MARAH ELAINE MD Location: [facility] Diagnostic interpretation performed at [facility] [place], [address] [place] [address]. The Pap Smear is a screening test for cervical cancer. False negative results occur with all screening tests, emphasizing the need for rescreening at recommended intervals, and clinical correlation. PROGRESS Observed: 10/16/2017 Status: COMPLETED Source: [place] 3:[address] [facility] REPOSITORY HNO ID: [id number] Author: Marah Elaine Service: (none) Author Type: Physician Type: Progress Notes Filed: 10/16/2017 3:46 PM Note Text: Sheron Connolly is a 51 year old who presents for her annual gynecologic exam without complaints. Having hip replaced next week. Still taking OCPs- no menses in over A year. Postmenopausal: likely- will stop ocps prior to surgery HRT use: OCPs. Last Pap: 2012 normal HPV: 2013 negative History of abnormal pap: No Last mammogram: 2017 normal History of abnormal mammogram: No Sexually active: Yes History of STDS: None Patient concerns for STD exposure: No. Pain with intercourse: No Postcoital bleeding: No Hot flashes: No Night sweats: No Vaginal dryness: No Exercise: not routine Diet: balanced Obstetric History T0 L0 SAB0 TAB0 Ectopic0 Multiple0 Live Births0 PAST MEDICAL HISTORY Diagnosis Date - Compression of brain (HCC) defect - Essential hypertension, malignant - Headache(784.0) - Pure hypercholesterolemia PAST SURGICAL HISTORY Procedure Laterality Date - L'SCOPE DX W/WO BRUSHINGS/WASHINGS Laparoscopy - PAST SURGICAL HISTORY OF 2007 left breast biopsy--benign - REDUCTION OF LARGE BREAST 10/29 FAMILY HISTORY Problem Relation Age of Onset - Heart Father - Hypertension Father - Hypertension Mother - fibrocystic breast [Other] [OTHER] Mother SOCIAL HISTORY Social History Substance Use Topics - Smoking status: Never Smoker - Smokeless tobacco: Never Used - Alcohol use No REVIEW OF SYSTEMS Abdomen: No abdominal pain, nausea, vomiting, diarrhea, or constipation. No bloating, early satiety, indigestion, or increased flatulence. Bladder: No dysuria, gross hematuria, urinary frequency, urinary urgency, or incontinence Breast: No breast lumps, nipple d/c, overlying skin changes, redness or skin retraction Allergies and current medication updated:Yes EXAM: BP 124/78 Ht 5' 6.2 (1.68m) Wt 212 lb (96.2kg) BMI 34.03 kg/(m2). GENERAL: pleasant, female in no apparent distress HEENT: Normocephalic, atraumatic, mucus membranes moist and no lesions NECK: Supple, full range of motion, no adenopathy and thyroid normal DERMATOLOGY: Normal, without lesions, non-icteric and non-hirsute BREAST: soft, non-tender, symmetric, no dominant mass, normal nipple-areolar complex, no lymphadenopathy and no nipple discharge ABDOMEN: soft, non-tender and no masses PELVIC: external genitalia normal, normal Bartholin's glands, urethra, [place]'s glands, no vulvar lesions, no cervical lesions, good vaginal support, physiologic discharge present, normal appearing perineal body and perianal region BIMANUAL: uterus bulky and enlarged with fibroids- 14 wks no adnexal masses and non-tender RECTOVAGINAL: deferred. NEURO: alert and oriented x3,exam grossly non-focal EXTREMITIES: normal ASSESSMENT/PLAN: 1) Health maintenance: Pap done with HPV. Mammogram up to date Nutrition, exercise and routine health maintenance exams reviewed. Calcium/Vitamin D supplementation information provided. Colon cancer screening: up to date with screening 2) Follow up one year or sooner as needed 3) Pelvic us done 2014 to follow Fibroids- consider next year- having surgery soon- will wait. Reviewed nature of fibroids. 4) reviewed OCPs- stop now. See how she does and if menopausal. Consider restarting HRT if needed for symptoms. Reviewed increased risk of clot after major orthopaedic surgery and better to stop ocps now. Marah Hicks MD CNOV Observed: 10/16/2017 Status: COMPLETED Source: [place] 2:[address] [facility] REPOSITORY Office Visit (WOOB) SHERON CONNOLLY ([id number]) 1965 F Date Time Provider Department 10/16/17 2:30 PM MARAH FRIAS WOBENITO During your visit today, we recorded the following information about you: Blood pressure Weight Height 124/78 96.2 kg 1.681 m Marah Hicks MD 10/16/2017 3:46 PM Addendum Sherongaurang Connolly is a 51 year old who presents for her annual gynecologic exam without complaints. Having hip replaced next week. Still taking OCPs- no menses in over A year. Postmenopausal: likely- will stop ocps prior to surgery HRT use: OCPs. Last Pap: 2012 normal HPV: 2012 negative History of abnormal pap: No Last mammogram: 2017 normal History of abnormal mammogram: No Sexually active: Yes History of STDS: None Patient concerns for STD exposure: No. Pain with intercourse: No Postcoital bleeding: No Hot flashes: No Night sweats: No Vaginal dryness: No Exercise: not routine Diet: balanced Obstetric History T0 L0 SAB0 TAB0 Ectopic0 Multiple0 Live Births0 PAST MEDICAL HISTORY Diagnosis Date - Compression of brain (HCC) defect - Essential hypertension, malignant - Headache(784.0) - Pure hypercholesterolemia PAST SURGICAL HISTORY Procedure Laterality Date - L'SCOPE DX W/WO BRUSHINGS/WASHINGS Laparoscopy - PAST SURGICAL HISTORY OF 2007 left breast biopsy--benign - REDUCTION OF LARGE BREAST 10/29 FAMILY HISTORY Problem Relation Age of Onset - Heart Father - Hypertension Father - Hypertension Mother - fibrocystic breast [Other] [OTHER] Mother SOCIAL HISTORY Social History Substance Use Topics - Smoking status: Never Smoker - Smokeless tobacco: Never Used - Alcohol use No REVIEW OF SYSTEMS Abdomen: No abdominal pain, nausea, vomiting, diarrhea, or constipation. No bloating, early satiety, indigestion, or increased flatulence. Bladder: No dysuria, gross hematuria, urinary frequency, urinary urgency, or incontinence Breast: No breast lumps, nipple d/c, overlying skin changes, redness or skin retraction Allergies and current medication updated:Yes EXAM: BP 124/78 Ht 5' 6.2ANDquot; (1.68m) Wt 212 lb (96.2kg) BMI 34.03 kg/(m2). GENERAL: pleasant, female in no apparent distress HEENT: Normocephalic, atraumatic, mucus membranes moist and no lesions NECK: Supple, full range of motion, no adenopathy and thyroid normal DERMATOLOGY: Normal, without lesions, non-icteric and non-hirsute BREAST: soft, non-tender, symmetric, no dominant mass, normal nipple-areolar complex, no lymphadenopathy and no nipple discharge ABDOMEN: soft, non-tender and no masses PELVIC: external genitalia normal, normal Bartholin's glands, urethra, [place]'s glands, no vulvar lesions, no cervical lesions, good vaginal support, physiologic discharge present, normal appearing perineal body and perianal region BIMANUAL: uterus bulky and enlarged with fibroids- 14 wks no adnexal masses and non-tender RECTOVAGINAL: deferred. NEURO: alert and oriented x3,exam grossly non-focal EXTREMITIES: normal ASSESSMENT/PLAN: 1) Health maintenance: Pap done with HPV. Mammogram up to date Nutrition, exercise and routine health maintenance exams reviewed. Calcium/Vitamin D supplementation information provided. Colon cancer screening: up to date with screening 2) Follow up one year or sooner as needed 3) Pelvic us done 2014 to follow Fibroids- consider next year- having surgery soon- will wait. Reviewed nature of fibroids. 4) reviewed OCPs- stop now. See how she does and if menopausal. Consider restarting HRT if needed for symptoms. Reviewed increased risk of clot after major orthopaedic surgery and better to stop ocps now. MD Bety Reid Psr 10/29/2017 8:43 AM Signed pap logged,letter sent. Bety Roy Psr Referring Provider: SELF [[id number]] Allergies As of Date: 10/16/2017 (No Known Allergies) Date Reviewed: 10/16/2017 Reviewed by: Corin Molina Ma - Fully Assessed Primary Visit Diagnosis:Encounter for gynecological examination with abnormal finding [Z01.411] Other Visit Diagnoses:Encounter for screening for human papillomavirus (HPV) [Z11.51] Pap smear for cervical cancer screening [Z12.4] Uterine leiomyoma, unspecified location [D25.9] Enlarged uterus [N85.2] Order(s):PAP FLUID CERVICAL SCREENING [[id number]] Order #: [id number] #[id number] HPV W/GENOTYPE [SQHPVHRR] Order #: [id number]. #:[id number] Prescriptions as of 10/16/2017 Sig: ATENOLOL 50 MG TABLET Take 50 mg by mouth once tram* NORETHINDRONE 1 MG-ETHINYL ES* Take 1 tablet by mouth once d* CALCIUM + D ORAL Take by mouth. ROSUVASTATIN 10 MG TABLET Take 0.5 tablets by mouth alayna* * ADVIL 200 MG TABLET Take one(1) to two(2) tablets* * THERAPEUTIC MULTIVITAMIN TABL* Take one(1) tablet daily. X LIPITOR 10 MG TABLET Take one(1) tablet daily. Problem List As Of Date 10/16/2017 Noted Resolved Fibroid [D25.9] INVALID FOR* Medications Discontinued During This Encounter atenolol (TENORMIN) 25 mg tablet 10/16/2017 Class: Historical Med Route: ORAL Sig: Take 50 mg by mouth once daily. Disc: Reason for discontinue is not on file. escitalopram oxalate (LEXAPRO) 10 mg* 10/16/2017 Class: Historical Med Route: ORAL Sig: Take 10 mg by mouth once daily. Disc: Reason for discontinue is not on file. Disposition: Return in 1 year (on 10/16/2018) for Annual Exam. Follow-up and Disposition History Recorded Letter Text [facility] [place], [place] [address] Sheron Connolly [address] [place] [address] 10/29/2017 [facility]: [id number] Dear Sheron, We are pleased to inform you that your recent Pap Test was within normal limits. Because Pap tests are so effective in the early detection of cervical cancer, you are encouraged to continue having the test at regular intervals. You will be due for a 1 year Gynecological Exam after this date 10/16/2018. If you have any questions regarding the above information, do not hesitate to call our office at between the hours of 8:00 a.m. and 5:00 p.m. Sincerely, Marah Elaine M.D. Encounter Status:Closed by MARAH ELAINE MD on 10/16/17 HPV W/GENOTYPE Collected: 10/16/2017 Status: F Source: [place] 4:[address] [facility] REPOSITORY TYPE CODE TESTS RESULT OUT OF REFERENCE UNITS RANGE LAB HPVT16 HPV HighRisk Negative for Type 16 HPV DNA high risk type 16 by PCR. LAB HPVT18 HPV HighRisk Negative for Type 18 HPV DNA high risk type 18 by PCR. LAB HPVHRO HPV HighRisk Negative for Other HPV DNA high risk types: 31,33,35,39,45 ,51,52,56,58,5 9,66,68 by PCR. Result Comment: This test was developed and its performance characteristics determined by [facility] [place]'s Karan Laurent [facility] [place] ([facility] It has not been cleared or approved by the FDA. [facility] is regulated under CLIA as qualified to perform high-complexity testing. This test is used for clinical purposes. It should not be regarded as inv estigational or for research. Performed By: #### HPVHRR #### [facility] [place] [facility] [address] [place], [place] [address] Observed: 10/09/2017 Status: F Source: [place] MRSA/SAID SCREEN 3:[address] [facility] REPOSITORY MRSA/SAID SCRN S. AUREUS S. aureus Negative MRSA MRSA Negative Performed By: #### M100.651 #### [facility] [address] [place], [address] HISTORY AND PHYSICAL Observed: 10/09/2017 Status: F Source: [place] EXAM 11:[address] [facility] REPOSITORY [facility] Medical Records Department [address] [place] [address] History and Physical 10/09/17 1101 MR#: [id number] Acct: [id number] Name: SHERON CONNOLLY Rep #: [id number] : 1965 51 From: Kurtis Davila PA-C PCP: Ronald Gross MD Status: PRE [facility] Y Location: [facility] History and Physical DATE OF SERVICE: 10/21/2017 SCHEDULED PROCEDURE: Right total hip arthroplasty HISTORY OF PRESENT ILLNESS: This is a 51-year-old female who is been having ongoing pain in the right hip for approximately 3 years. She states over the last year and a half it is significantly worsened. Patient states her pain is aching, sharp, stabbing, and sore. Going up and down stairs, walking any amount of distance increases her pain. Rest and sitting is temporarily helpful. Getting dressed, doing housework, and shopping all increase her pain and has difficulty accomplishing these tasks. Patient has tried conservative measures including rest, ice, and elevation with temporary relief. Patient has also tried corticosteroid injection 2 with minimal relief on the first injection and no relief from the second injection. She has tried formal physical therapy and home exercises with no relief in symptoms. She has tried oral medications including Aleve or Advil which only gives her temporary relief. After failing conservative measures and discussing all treatment options with Drs. Britton, the patient would like to proceed with a right total hip arthroplasty. Patient does have medical history pertinent for hypertension. She currently denies any chest pain, shortness of breath, fevers chills, recent infection. We are obtaining surgical clearance from patient's primary care physician Dr. Gross. REVIEW OF SYSTEMS: ROS: Const: Denies change in appetite, fever, hard of hearing, vision problems and weight change CV: Denies chest pain, heart murmur, irregular heartbeat and peripheral vascular disease. Resp: Denies asthma, cough, pneumonia, sleep apnea, SOB, tuberculosis and wheezing. GI: Denies constipation, diarrhea, difficulty swallowing, heartburn, nausea, bloody stools and vomiting. : . (F Genital Sx) Urinary: denies incontinence. Musculo: Reports limp, trouble walking and weakness, but denies leg swelling. Skin: Denies Raynaud's, history of shingles and tattoo. Neuro: Denies ambulatory dysfunction, dizziness, numbness/tingling and tremor. Psych: Denies anxiety, depression, insomnia, mental illness and stress. Jose Raul/Lymph: Denies anemia, bleeding/bruising tendency and past transfusion. Reviewed, no changes. PAST MEDICAL HISTORY: Advance Care Plan: No Advance Directives Effective Date: 09/15/2017 PMH: Medical Problems: Hypercholesterolemia, High Blood Pressure Accidents: None Surgical Hx: Breast Reduction - (2006) [facility]esthesia Complications: None Assistive Devices: None Reviewed, no changes. 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 Personal Habits: Cigarette Use: Never Smoked Cigarettes.Alcohol: Occasionally.Drug Use: Denies Use.Enjoy Exercising: Exercises 1-3 X/Week. Reviewed, no changes. VITALS: Ht: 66 Wt: 212lb Wt k.163 BMI: 34.2 BP: 152/80 Pulse: 60 Resp: 16 T: 97.8 T: 36.6C ALLERGIES: No Known Drug Allergy MEDICATIONS: Oxycodone HCL 5 mg 1-2 by mouth every 4 hours, Famotidine 20 mg 1 by mouth every day, MS Contin 15 mg 1 by mouth twice a day, Promethazine HCL 12.5 mg 1-2 tablets by mouth every 6 hours, Atenolol 50 mg 1 tab PO daily, Crestor 5 mg 1 tab PO daily, Lo Loestrin Fe 1 MG-10 mcg / 10 mcg 1 by mouth every day PRE-OP EXAM: General appearance:NORMAL Other: Eyes: Conjunctivae and lids: NORMAL Pupils: ERR Ears, Nose, Mouth, and Throat: NORMAL Other: Inspection of lips, teeth and gums: NORMAL Other: Neck: Examination of neck: no masses noted. Respiratory: Assessment of respiratory effort: NORMAL Other: Ausculation of lungs: clear to ausculation no wheeses, ronchi or rales. Cardiovascular: Ausculation of heart: regular rate and rhythem, no mummurs, gallops or rubs. Exam of carotid arteries: NORMAL Other: Gastrointestinal: Exam of abdomen: soft, nontender, nondistended bowel sounds present. Lymphatic: Palpation of nodes in neck: NORMAL Other: Palpation of nodes in Axillae: NORMAL Other: Neurological: see below Psychiatric: Orientation to time, place and person: NORMAL Other: Mood and affect: NORMAL Other: PHYSICAL EXAMINATION: Patient walks with an antalgic gait. Patient has increased pain with range of motion of the right hip. Pain is increased with any flexion and internal rotation. Patient has limited internal rotation to neutral and external rotation to 30 . Flexion to 80 . Sensations intact light touch. IMAGING STUDIES: Attained at [facility] [place] on October 08, 2017 including AP pelvis, AP right hip, and crossfire lateral right hip reveals severe osteoarthritis of the right hip with severe joint space narrowing, subchondral sclerosis, and osteophyte formation. No lytic or blastic lesions appreciated. No acute findings for fracture. IMPRESSION: 1. Severe right hip osteoarthritis 2. Hypertension 3. Hypercholesterolemia PLAN: Dr. Britton did discuss and review with the patient all treatment options including surgical versus nonsurgical. Patient wishes to proceed with above- stated procedure. Potential risks, benefits, and complications of this procedure were discussed in detail including but not limited to , infection, nerve and blood vessel damage, persistent pain, numbness, tingling, paresthesias, blood clot, pulmonary embolism, and requirement for further surgery. The patient expressed full understanding has no further questions for the doctor. Patient does agree to proceed with the above-stated procedure and has signed the surgery consent form. ___ I have re-examined the patient. There are no clinical changes since date of exam. ___ See progress notes for changes. ___ Dictated on admission Date: Time: Signature: 10/09/17 1108 <Electronically signed by Kurtis Davila PA-C> Date Kurtis Davila PA-C Griseligner Signature: Date (if applicable) CC: Ronald Gross MD; Kurtis SAEED Signed BASIC METABOLIC Collected: 10/01/2017 Status: F Source: [place] PROFILE (BMP) 5:[address] [facility] REPOSITORY TYPE CODE TESTS RESULT OUT OF RANGE REFERENCE UNITS LAB L501.0100 74-106 mg/dL Normal GLU 79 LAB L501.1000 7-18 mg/dL High BUN 20 LAB L501.1100 0.55-1.02 mg/dL Normal 0.84 CREAT,SERUM Result Comment: The validity of the calculated GFR AND GFRAA in patients over 70 years has not been determined. Clinical correlation is essential. LAB L501.1110 >60 mL/min Normal EST GFR 76 Result Comment: Non- GFR Calc LAB L501.1115 >60 mL/min Normal EST GFR - AA 92 Result Comment: GFR Calc LAB L501.1300 10-20 RATIO High BUN/CRE 23.9 LAB L501.2200 8.5-10.1 mg/dL CA Normal 9.0 LAB L501.5300 136-145 mmol/L NA Normal 136 LAB L501.5600 3.5-5.1 mmol/L K Normal 3.7 LAB L501.5900 98-107 mmol/L CL Normal 102 LAB L501.6100 21.0-32.0 mmol/L Normal CO2 25.0 LAB L501.6200 5-15 Normal GAP 9 Performed By: #### L500.2500 #### [facility] [address] [place], [place], [id number] CBC W/DIFF, AUTOMATED Collected: 10/01/2017 Status: F Source: [place] 5:[address] [facility] REPOSITORY TYPE CODE TESTS RESULT OUT OF RANGE REFERENCE UNITS LAB L100.1000 4.4-11.0 K/mm3 Normal WBC 10.5 LAB L100.1200 4.2-5.4 M/mm3 Normal RBC 4.88 LAB L100.1300 12.0-15.0 g/dl High HGB 15.3 LAB L100.1400 37-47 % Normal HCT 45.6 LAB L100.1500 81-99 fL Normal MCV 93.4 LAB L100.1600 27.0-32.0 pg Normal MCH 31.4 LAB L100.1700 32-36 g/gl Normal MCHC 33.6 LAB L100.1810 11.6-14.6 % Normal RDW CV 12.5 LAB L100.1820 35.1-43.9 fl Normal RDW SD 42.7 LAB L100.1900 150-450 K/mm3 Normal PLT 311 LAB L100.2000 6.2-12.0 fl Normal MPV 9.9 LAB L100.2100 47-70 % Normal NEUT% 66.0 LAB L100.2200 19-41 % Normal LY% 23.1 LAB L100.2300 0-10 % Normal MONO% 8.5 LAB L100.2400 0-5 % Normal EO% 2.2 LAB L100.2500 0-1 % Normal BASO% 0.1 LAB L100.2550 0.0-0.9 % Normal IM GRAN % 0.100 Result Comment: IG% - Immature Granulocytes (promyelocytes, myelocytes and metamyelocytes) > 1% indicates that a LEFT SHIFT is Present. LAB L100.2620 2.0-7.7 X10 3/uL Normal Absolute Neut 6.9 LAB L100.2720 0.83-4.51 X10 3/ul Normal Absolute Lymph 2.41 Performed By: #### L100.0100 #### [facility] [address] [facility] [place], [place], [id number] PROTHROMBIN TIME W/INR Collected: 10/01/2017 Status: F Source: [place] 5:[address] [facility] REPOSITORY TYPE CODE TESTS RESULT OUT OF RANGE REFERENCE UNITS LAB L300.4150 11.7-14.9 SECONDS Normal PROTIME 12.7 LAB L300.4200 Normal INR 1.0 Performed By: #### L300.3900, L300.4310 #### [facility] [address] [place], [place], [address] PARTIAL THROMBOPLAST Collected: 10/01/2017 Status: F Source: [place] TIME 5:[address] [facility] REPOSITORY TYPE CODE TESTS RESULT OUT OF RANGE REFERENCE UNITS LAB L300.4310 24.1-36.2 Seconds Normal PTT 25.2 Performed By: #### L300.3900, L300.4310 #### [facility] [address] [place], [address] CHEST PA AND LATERAL Observed: 10/01/2017 Status: F Source: [place] 4:[address] [facility] REPOSITORY [facility] Imaging Services [address] [place] [address] Chest PA and Lateral MR#: [id number] Acct: [id number] Name: SHERON CONNOLLY Rep #: [id number] : 1965 F 51 From: Jen Oliver MD PCP: Ronald Gross MD Status: REG CLI Study: Chest PA and Lateral Date of Exam: 10/01/17 Exam# [id number] Ordering Dr: Boris Gross MD XR Chest 2 Views INDICATION: pre op, hx of high blood pressure COMPARISON: None FINDINGS: Heart size and pulmonary vascularity are within normal limits. The lungs are clear without evidence of airspace consolidation or pleural effusion. The osseous structures are grossly unremarkable. RAD/Chest PA and Lateral IMPRESSION: No radiographic evidence of acute intrathoracic disease. 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 REPOSITORY [facility] Imaging Services [address] [place] [address] Hip 2-3 Views with Pelvis MR#: [id number] Acct: [id number] Name: SHERON CONNOLLY Rep #: [id number] : 1965 F 51 From: Flynn Tee MD PCP: Ronald Gross MD Status: REG CLI Study: Hip 2-3 Views with Pelvis Date of Exam: 08/28/17 Exam# [id number] Ordering Dr: Boris Gross MD STUDY: X-RAY - PELVIS AND RIGHT HIP REASON FOR EXAM: Female, 51 years old. Right hip pain. TECHNIQUE: Radiological exam, hip, unilateral, with pelvis when performed; 2 or 3 views. COMPARISON: None. FINDINGS: No definite acute fracture or dislocation. There is a non-specific bowel gas pattern. Normal visualized soft tissue structures. Normal bilateral iliac wings, sacroiliac joints and visualized sacrum. Normal bilateral superior and inferior pubic rami. Normal pubic symphysis. Normal bilateral ischial tuberosities. Bilateral osteoarthritis of the hips, severe on the right and moderate on the left. Prominent osteophytes. No definite fracture or dislocation. RAD/Hip 2-3 Views with Pelvis IMPRESSION: No definite fracture or dislocation. Prominent hip osteoarthritis. 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: Signed ALLERGIES ALLERGIES DATE TYPE / CODE NAME / CODE REACTION SEVERITY SOURCE 07/15/2018 Drug No Known Unknown [facility] Allergy/416 [facility] 452[facility](SNOM 0388(RXNORM) Repository ED CT) Drug NO KNOWN [facility] Class/70255 ALLERGIES [place] 1003(SNOMED Repository CT) ENCOUNTERS ENCOUNTERS ADMIT/DISCHARGE ACCOUNT ADMITTING ENCOUNTER LOCATION SOURCE NUMBER CLASS 08/05/2018 [id number] Ambulatory [facility] ing:PT Repository 07/21/2018 [id number] [facility]OP[facility] Repository 07/15/2018/07/15/20 [id number] Emergency [place] [address] [place] [address] [facility] ing:ED Repository 06/24/2018 [id number] Ambulatory [place] [facility] ing:RAD Repository 06/09/2018 [id number] [facility] ing:RAD Repository 05/27/2018 [id number] [facility] [place] [facility] ing:RAD Repository 05/10/2018/05/10/20 [id number] Ambulatory [facility]:B John 18 [facility] Repository 04/23/2018 [id number] Ambulatory [place] [facility] ing:EMPH Repository 02/02/2018 [id number] [facility] ing:NS Repository 01/02/2018/01/23/20 [id number] [place] [facility] ing:NS Repository 12/25/2017/12/26/19 [id number] Ambulatory John John 18 [facility] ing:PT Repository 12/19/2017/12/23/19 [id number] Ambulatory [place] 18 [facility] ing:NS Repository 11/03/2017 [id number] Ambulatory [facility] ing:RAD.FUTUR Repository E 10/21/2017/10/21/19 [id number] Ambulatory Ojhn John 18 [facility] ing:SDCRoom: Repository AC10 10/16/2017/10/16/19 [id number] Ambulatory [facility] 18 [facility] [place] Repository 10/10/2017/10/22/19 [id number] Ambulatory [place] 18 [facility] ing:NS Repository 10/01/2017 [id number] Ambulatory [place] [facility] ing:MTRAD Repository 09/12/2017/09/24/19 [id number] Ambulatory [place] [facility] 18 [facility] ing:NS Repository 08/28/2017 [id number] General acute hospital ing:MTRAD Repository 08/15/2017/08/15/[id number] ing:PT Repository PAYERS PAYERS ENCOUNTER GUARANTOR PAYER SUBSCRIBER SOURCE 08/05/2018 JOHN [id number] Primary Insurance:[facility] Vidya [facility]: [facility] [place] [address]Zgn: [facility] [id number] Hospital Number: Repository () [id number] Date:1611-87-65CT [address] [address], [place] [address]GT: CHECK WEBSITE 08/05/2018 Secondary NOT GIVENUNK John Insurance:SELF PAY [facility] Number: Effective Repository Date:2018-06-30 07/21/2018 JOHN [id number] Primary Insurance:[facility]: [facility] [place] [address]Pkn: [facility] [id number] Hospital Number: Repository () [id number] Date:7447-87-00[address] [address], [place] [address]GF: CHECK WEBSITE 07/21/2018 Secondary NOT GIVENUNK John Insurance:SELF PAY [facility] Number: Effective Repository Date:2018-05-13 07/15/2018 JOHN Madsen [id number] Primary Insurance:[facility] V[facility]ya [facility]: [facility] [place] [address]Ird: [facility] [id number] Hospital Number: Repository () [id number] Date:3596-61-62FA [address] [address]I, [place] [address]ZP: CHECK WEBSITE 07/15/2018 Secondary NOT GIVENUNK [place] Insurance:SELF PAY [facility] Number: Effective Repository Date:2018-07-15 06/24/2018 JOHN Madsen [id number] Primary Insurance:[facility] KARLDOB: [place] [address]Pul: [facility] [id number] Hospital Number: Repository () [id number] Date:6903-05-94GR [address] [address], [place] [address]ZV: CHECK WEBSITE 06/24/2018 Secondary NOT GIVENUNK John Insurance:SELF PAY [facility] Number: Effective Repository Date:2018-06-24 06/09/2018 JOHN Madsen [id number] Primary Insurance:[facility] Lopez [facility]: [place] [address]Xqd: [facility] [id number] Hospital Number: Repository () [id number] Date:4614-71-44UG [address] [address]BZY[place], [place] [address]IE: CHECK WEBSITE 06/09/2018 Secondary NOT GIVENUNK [place] Insurance:SELF PAY [facility] Number: Effective Repository Date:2018-05-28 05/27/2018 JOHN Madsen [id number] Primary Insurance:[facility] J [facility]: [place] [address]Mdi: [facility] [id number] Hospital Number: Repository () [id number] Date:2288-96-98LQ [address] [address]XN, [place] [address]UU: CHECK WEBSITE 05/27/2018 Secondary NOT GIVENUNK John Insurance:SELF PAY [facility] Number: Effective Repository Date:2018-05-27 05/10/2018 JOHN Madsen [id number] Primary Insurance:[facility] [place] [address]Dli: [facility] [id number] Hospital Number: Repository () [id number] Date:3034-92-49YO [address] [address]ZIG[place], [place] [address]HX: CHECK WEBSITE 05/10/2018 Secondary NOT GIVENUNK [place] Insurance:SELF PAY [facility] Number: Effective Repository Date:2018-05-10 04/23/2018 JOHN Madsen [id number] Primary NOT GIVENUNK [facility] Insurance:SELF PA[place] [facility] [place] [address]Mub: [facility] Number: Effective Repository () Date:2018-04-23 02/02/2018 John Madsen [id number] Primary Insurance:[facility] [place] [address]Tzw: [facility] [id number] Hospital Number: Repository () [id number] Date:7534-09-76SH [address] [address]Y, [place] [address]VS: CHECK WEBSITE 02/02/2018 Secondary NOT GIVENUNK [place] Insurance:SELF PAY [facility] Number: Effective Repository Date:2018-01-23 01/02/2018 John Madsen [id number] Primary Insurance:[facility]: [facility] [place] [address]Dga: [facility] [id number] Hospital Number: Repository () [id number] Date:6463-13-06RN [address] [address], [place] [address]ZW: CHECK WEBSITE 01/02/2018 Secondary NOT GIVENUNK John Insurance:SELF PAY [facility] Number: Effective Repository Date:2017-12-23 12/25/2017 John Madsen [id number] Primary Insurance:[facility] [place] [address]Kwd: [facility] [id number] Hospital Number: Repository () [id number] Date:2975-82-72ML [address] [address], [place] [address]GL: CHECK WEBSITE 12/25/2017 Secondary NOT GIVENUNK [place] Insurance:SELF PAY [facility] Number: Effective Repository Date:2017-11-04 12/19/2017 John Madsen [id number] Primary Insurance:[facility] [place] [address]Xrq: [facility] [id number] Hospital Number: Repository () [id number] Date:0597-78-80TJ [address] [address]PKBJNCPQB, [place] [address]HY: CHECK WEBSITE 12/19/2017 Secondary NOT GIVENUNK John Insurance:SELF PAY [facility] Number: Effective Repository Date:2017-10-23 11/03/2017 John Madsen [id number] Primary Insurance:[facility] [place] [address]Obb: [facility] [id number] Hospital Number: Repository () [id number] Date:5271-38-90BK [address] [address]NLBFLC[place], [place] [address]XF: CHECK WEBSITE 11/03/2017 Secondary NOT GIVENUNK [place] Insurance:SELF PAY [facility] Number: Effective Repository Date:2017-10-17 10/21/2017 John Madsen [id number] Primary Insurance:[facility] Lopez [facility]: [place] [address]Vls: [facility] [id number] Hospital Number: Repository () [id number] Date:9014-93-80LU [address] [address]QVWNGKDB, [place] [address]NT: CHECK WEBSITE 10/21/2017 Secondary NOT GIVENUNK [place] Insurance:SELF PAY [facility] Number: Effective Repository Date:2017-09-16 10/10/2017 John Madsen [id number] Primary Insurance:[facility] [place] [address]Vqv: [facility] [id number] Hospital Number: Repository () [id number] Date:0416-10-28KB [address] [address], [place] [address]XE: CHECK WEBSITE 10/10/2017 Secondary NOT GIVENUNK John Insurance:SELF PAY [facility] Number: Effective Repository Date:2017-09-25 10/01/2017 John [id number] Primary Insurance:[facility] Lopez [facility] [place] [address]Iua: [facility] [id number] Hospital Number: Repository () [id number] Date:5690-34-10KH [address] [address], [place] [address]RZ: CHECK WEBSITE 10/01/2017 Secondary NOT GIVENUNK [place] Insurance:SELF PAY [facility] Number: Effective Repository Date:2017-10-01 09/12/2017 John Madsen [id number] Primary Insurance:[facility] [place] [address]Vna: [facility] [id number] Hospital Number: Repository () [id number] Date:6803-89-94VH [address] [address]WFVL[place]VM, [place] [address]RI: CHECK WEBSITE 09/12/2017 Secondary NOT GIVENUNK John Insurance:SELF PAY [facility] Number: Effective Repository Date:2017-08-25 08/28/2017 John Madsen [id number] Primary Insurance:[facility] [place] [address]Pvl: [facility] [id number] Hospital Number: Repository () [id number] Date:3883-58-40SP [address] [address], [place] [address]HV: CHECK WEBSITE 08/28/2017 Secondary NOT GIVENUNK John Insurance:SELF PAY [facility] Number: Effective Repository Date:2017-08-28 08/15/2017 John Madsen [id number] Primary Insurance:[facility]: [place] [address]Dkl: [facility] [id number] Hospital Number: Repository () [id number] Date:2504-33-26JW [address] [address]XPT[place], [place] [address]PF: CHECK WEBSITE 08/15/2017 Secondary NOT GIVENUNK [place] Insurance:SELF PAY [facility] Number: Effective Repository Date:2017-05-13
== END ==
PROVIDERS: Family Provider Family Medicine; PCP Family Medicine; Referring Provider Family Medicine; Visit Provider Family Medicine
DX: Z12.31 Encounter for screening mammogram for malignant neoplasm of breast (principal)
CPT/HCPCS: 77063; 77067

== ENCOUNTER 2018-08-19 15:30 | Outpatient (RCR) | payer OTHER, SELFPAY ==
--- NOTE | 2018-07-09 10:01 | HP.PTEVAL_ITS ---
Patient's Visit Information JARROD JOSUE is a 52 year old F referred to Physical Therapy by Power Britton with a diagnosis of RIGHT ARTIFICIAL HIP JOINT,WEAKNESS,PAIN RIGHT HIP. Date of Evaluation: 07/08/18 Physical Therapist: Jeff Pereyra, PT, - Visit Plan Frequency: 2x /Week Duration: 2 Weeks Plan: ROM,STRENGTHENING HIP/KNEE, NUSTEP,MODALITIES PRN - Subjective Subjective: This 52 y/o female presenst to physical therapy with right THR anterior approach Oct 21 2017. Patient fell about 1 month slipped on buttuck walking dog. Then about 1 week later getting out of car caused shooting pain in groin. Patient made appointment with DR. Britton recommended PT. Patient has pain anterior lateral hip region.Patient symptoms worse with getting out of bed care and stairs. Symptoms better with MEDROL pack. Patient sleeping good at night. Patient had injection left hip. Ambulated with no cane. Patient sated other issue is weakness. Patient doing aternating stairs. Denies parathesia/tingling. Patient impairments affects QOL and jod demnads. SOCAIL: . 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 GAIT: ambulates with no device reciprocal pattern mild decrease stance. BALANCE: good. PALPATION: anterior lateral medius. NEURO: denies parathesia/tingling. AROM:hip flexion 100 degrees,abduction 35 ,knee 0-120 degrees. MMT: quads/hams 4/5,hip flexion 3+/5 soreness,abduction 4- /5. STAIRS: alternating - Goals Goal 1:: Independant with HEP. Goal Time Frame: 2-4 Weeks Goal 2:: Noramilize gait pattern Goal Time Frame: 2-4 Weeks Goal 3:: Patient increase strength hip flexors and abd 4/5 to improve stairs. Goal Time Frame: 2-4 Weeks Goal 4:: Patient to improve ADLS and job demands with no limitations Goal Time Frame: 2-4 Weeks Goal 5:: Patient to improve LFES to 5-10 points to i mprove QOL Goal Time Frame: 2-4 Weeks - Rehabilitation Potential Physical Therapy Diagnosis: This patient under went s/p THR Sep ,patient fell slipped landed on buttuck then eventually developed anterior hip pain x-rays - . But with has pain and weakness hip flexors impairs gait and function Rehabilitation Potential: Good - Anticipated Interventions Patient/Client Instruction: Educate patient on: Condition, Plan of Care For the Purpose of:: To decrease pain, To increase ROM, To improve muscle performance and motor function, To improve ability to perform ADL's, To improve ability of physical actions for home/community/work/leisure, To improve gait and locomotor functions, To improve health of tissue, To decrease soft tissue restriction, To increase flexibility/ROM, To improve ability to perform tasks related to life management Therapeutic Exercise to Include: Strength training, Postural training, Flexibilty training, Passive ROM, Active ROM Comment: HIP/KNEE For the Purpose of:: To decrease pain, To increase ROM, To improve muscle performance and motor function, To increase tolerance to activity/condition/position, To improve ability of physical actions for home/community/work/leisure, To improve health of tissue, To decrease soft tissue restriction, To increase flexibility/ROM, To improve ability to perform tasks related to life management TENS: Yes IF ES: Yes Cryotherapy (ice pack, ice massage): Yes Thermo therapy (hot pack): Yes Ultrasound (thermal/non thermal): Yes For the Purpose of:: To decrease pain, To decrease swelling/inflammation, To improve nutrient delivery to tissue, To increase oxygenation perfusion, To improve health of tissue Thank you for the opportunity to evaluate your patient. For Medicare and Medicare HMO plans, please review the plan of care and approve it. It will need to be FAXED BACK to us at [phone] for Medicare purposes. Please let me know if there are questions or concerns regarding this plan of care. Physician Signature: Date:
--- NOTE | 2018-08-19 16:01 | HP.PTDCSUM ---
HP - PT D/C Summary It has been my pleasure to treat JARROD JOSUE under orders from Power Britton, for the diagnosis of RIGHT ARTIFICIAL HIP JOINT,WEAKNESS,PAIN RIGHT HIP for a total of 8 visit(s). Discharge Date: Please see the following information for a summary of their discharge status. - Subjective Subjective: Doing well - Pain Right Hip Pain Intensity (Out of 10): 0 - Overall Improvement % Improvement: 90 - Objective Objective/Function: POSTURE: WFL. GAIT : NORMAL SRIRAM. AROM: WFL NO PAIN. MMT: QUADS/HAMS/HIP FLEXION /ABD 4/5. STAIRS: ALTERNATING. PALAPTION: MILD TENDERNESS PROXIMAL QUAD - Goals Goal 1:: Independant with HEP. Goal Progress: Goal Met Goal 2:: Noramilize gait pattern Goal Progress: Goal Met Goal 3:: Patient increase strength hip flexors and abd 4/5 to improve stairs. Goal Progress: Goal Met Goal 4:: Patient to improve ADLS and job demands with no limitations Goal Progress: Goal Met Goal 5:: Patient to improve LFES to 5-10 points to i mprove QOL Goal Progress: Goal Met - Plan Plan: D/C - D/C Information If there are questions or concerns regarding this patient's physical therapy, please feel free to call me at [phone]. Thank you for the referral of this patient. Sincerely, Jeff Pereyra, PT, Cert MDT, OCS
== END 2018-08-19 19:00 | disposition home or self-care (01) ==
LOC: PT 15:30
PROVIDERS: Family Provider Family Medicine; PCP Family Medicine
DX: Z96.641 Presence of right artificial hip joint (principal); M25.551 Pain in right hip; R53.1 Weakness
CPT/HCPCS: 97014; 97110; 97161; G0283

== ENCOUNTER → 2018-10-16 14:13 | Outpatient (CLI) | payer OTHER, SELFPAY ==
--- NOTE | 2018-10-16 14:16 | RAD_ITS ---
STUDY: X-RAY - RIGHT HIP REASON FOR EXAM: Female, 52 years old. Right hip replacement, follow-up TECHNIQUE: 2 views of the hip. AP pelvis. COMPARISON: Postop x-ray from 06/24/2018 FINDINGS: Right hip replacement is in stable radiographic alignment. No periimplant fracture or malalignment seen. Circumferential narrowing of the left hip joint worse in the superior/lateral quadrant with subchondral sclerosis. No sachin erosion. There are vascular phleboliths of the pelvis. Popcorn calcifications of the right hemipelvis may represent uterine fibroid. RAD/HIP, UNI W/ Pelvis 2-3 Views IMPRESSION: 1. Stable alignment of right hip replacement without apparent fracture. 2. Degenerative changes of the left hip. Electronically Signed: Matthieu Tate MD at 15:35 EST , Service support ,
== END ==
PROVIDERS: Family Provider Family Medicine; PCP Family Medicine; Referring Provider Specialist; Visit Provider Specialist
DX: Z96.641 Presence of right artificial hip joint (principal)
CPT/HCPCS: 73502

== ENCOUNTER → 2018-10-26 07:05 | Outpatient (CLI) | payer OTHER, SELFPAY ==
[2018-10-26 07:59] LABS: AST(SGOT) 26 U/L (15-37); Alanine Aminotransfer ALT/SGPT 31 U/L (13-56); Albumin, Serum 3.4 g/dL (3.2-5.0); Alkaline Phosphatase 53 U/L (45-117); Anion Gap 7 (5-15); BUN 18 mg/dL (7-18); BUN/Creat Ratio 20.2 RATIO (10-20); Calcium,Total 8.5 mg/dL (8.5-10.1); Chloride 104 mmol/L (98-107); Cholesterol 162 mg/dL (200); Creatinine, Serum 0.89 mg/dL (0.55-1.02); EST Glomerular Filtration Rate 71 mL/min (>60); Est Glom Filt Rate - Afr Amer 85 mL/min (>60); Globulin 3.5 g/dL (2.2-4.2); Glucose 90 mg/dL (74-106); High Density Lipoprotein 57 mg/dL; Potassium 4.1 mmol/L (3.5-5.1); Protein, Total 6.9 g/dL (6.4-8.2); Sodium Level 135 mmol/L (136-145); Triglycerides 118 mg/dL; Very Low Density Lipoprotein 24 mg/dL (5-40)
== END ==
PROVIDERS: Family Provider Family Medicine; PCP Family Medicine; Referring Provider Family Medicine; Visit Provider Family Medicine
DX: I10 Essential (primary) hypertension (principal); E78.5 Hyperlipidemia, unspecified
CPT/HCPCS: 36415; 80053; 80061

== ENCOUNTER → 2018-10-28 08:56 | Outpatient (CLI) | payer OTHER, SELFPAY ==
--- NOTE | 2018-10-28 08:55 | RAD_ITS ---
PROCEDURE: Fluoroscopic guided Hip Injection DATE: October 28, 2018. INDICATION: Female, 52 years old. Chronic hip pain. PHYSICIAN: Aden Zacarias M.D. MEDICATIONS: 40 mg of Depomedrol, 3 cc 1% lidocaine. 2% lidocaine administered subcutaneously for local anesthesia. ACCESS SITE: Left hip. NEEDLE: 22-gauge spinal needle. FLUOROSCOPY TIME (if supplied): (0:30) minutes/seconds FINDINGS: The risks, benefits, and alternatives to the procedure were explained to the patient. The specific risks of bleeding, infection, and neurovascular injury were detailed and accepted. Witnessed informed consent was obtained. A 22-gauge spinal needle was positioned under radiographic fluoroscopic localization. Approximately 2 cc of Isovue-300 instilled for localization purposes. Medication was then injected. The patient tolerated the procedure well without any immediate complications. The patient was placed supine with head elevated and returned to the floor in stable condition. RAD/Inj/Asp Sumeet Jt Should/Hip/Knee IMPRESSION: 1. Successful fluoroscopic guided hip injection. Electronically Signed: Aden Zacarias, at 10:23 EST , Service support ,
== END ==
PROVIDERS: Family Provider Family Medicine; PCP Family Medicine; Referring Provider Specialist; Visit Provider Specialist
DX: M16.12 Unilateral primary osteoarthritis, left hip (principal)
CPT/HCPCS: 20610; 77002; Q9965

== ENCOUNTER → 2018-11-12 13:58 | Outpatient (CLI) | payer OTHER, SELFPAY ==
--- NOTE | 2018-11-12 14:00 | US_ITS ---
STUDY: ULTRASOUND TRANSVAGINAL CLINICAL: Female, 53 years old. Uterine fibroid TECHNIQUE: Transvaginal COMPARISON: 03/15/2015 FINDINGS: The uterus is anteverted and is in a midline position. The uterus measures 11 x 8.7 x 5.4 cm. Normal uterine cervix. The endometrium measures 6.4 mm in thickness, and is hyperechoic. There is no demonstrated endometrial mass. There are multiple uterine fibroids with lobulated surface pattern of the uterus. There is a 5.4 x 4.8 x 5 cm fibroid in the left anterior fundal wall which displaces the endometrium to the right. There is 6.1 x 5.2 x 5.6 cm fibroid in the posterior uterine wall. I.U.D. - The patient does not have an I.U.D. The right ovary is nonvisualized. The left ovary is visualized. The left ovary measures 3.2 x 2.7 x 1.9 cm. There is no left ovarian cyst or ovarian mass. There is no visualized left adnexal mass or complex lesion. There is normal arterial and normal venous vascularity. There is no fluid in the cul-de-sac. The pre void volume of the bladder was 991 ml. US/Pelvic (Non ) IMPRESSION: 1. Prominent fibroid uterus. The measured fibroids appear stable in size since the previous study. 2. Normal ovaries. Electronically Signed: Rhona Flores, at 16:13 EDT Tel , Service support ,
--- NOTE | 2018-11-12 14:01 | US_ITS ---
STUDY: ULTRASOUND TRANSVAGINAL CLINICAL: Female, 53 years old. Uterine fibroid TECHNIQUE: Transvaginal COMPARISON: 03/15/2015 FINDINGS: The uterus is anteverted and is in a midline position. The uterus measures 11 x 8.7 x 5.4 cm. Normal uterine cervix. The endometrium measures 6.4 mm in thickness, and is hyperechoic. There is no demonstrated endometrial mass. There are multiple uterine fibroids with lobulated surface pattern of the uterus. There is a 5.4 x 4.8 x 5 cm fibroid in the left anterior fundal wall which displaces the endometrium to the right. There is 6.1 x 5.2 x 5.6 cm fibroid in the posterior uterine wall. I.U.D. - The patient does not have an I.U.D. The right ovary is nonvisualized. The left ovary is visualized. The left ovary measures 3.2 x 2.7 x 1.9 cm. There is no left ovarian cyst or ovarian mass. There is no visualized left adnexal mass or complex lesion. There is normal arterial and normal venous vascularity. There is no fluid in the cul-de-sac. The pre void volume of the bladder was 991 ml. US/Transvaginal Non- IMPRESSION: 1. Prominent fibroid uterus. The measured fibroids appear stable in size since the previous study. 2. Normal ovaries. Electronically Signed: Rhona Flores, at 16:13 EDT Tel , Service support ,
== END ==
PROVIDERS: Family Provider Family Medicine; PCP Family Medicine; Referring Provider Obstetrics & Gynecology; Visit Provider Obstetrics & Gynecology
DX: D25.9 Leiomyoma of uterus, unspecified (principal)
CPT/HCPCS: 76830; 76856; 93976

== ENCOUNTER → 2019-01-22 07:03 | Outpatient (CLI) | payer OTHER, SELFPAY ==
[2019-01-22 09:27] LABS: Anion Gap 7 (5-15); BUN 19 mg/dL (7-18); BUN/Creat Ratio 23.8 RATIO (10-20); Calcium,Total 8.6 mg/dL (8.5-10.1); Chloride 105 mmol/L (98-107); EST Glomerular Filtration Rate 80 mL/min (>60); Est Glom Filt Rate - Afr Amer 97 mL/min (>60); Glucose 84 mg/dL (74-106); Potassium 4.1 mmol/L (3.5-5.1); Sodium Level 138 mmol/L (136-145)
== END ==
PROVIDERS: Family Provider Family Medicine; PCP Family Medicine; Referring Provider Family Medicine; Visit Provider Family Medicine
DX: I10 Essential (primary) hypertension (principal)
CPT/HCPCS: 36415; 80048

== ENCOUNTER → 2019-03-19 10:14 | Outpatient (CLI) | payer OTHER, SELFPAY ==
[2019-03-19 12:29] LABS: Hematocrit 44.6 % (37-47); Hemoglobin 15.4 g/dL (12.0-15.0); Mean Corp Hgb Conc 34.5 g/dL (32-36); Mean Corpuscular Hgb 32.6 pg (27.0-32.0); Mean Corpuscular Volume 94.3 fL (81-99); Mean Platelet Vol. 9.7 fl (6.2-12.0); Platelet Count 294 K/mm3 (150-450); RBC Distribution Width CV 11.9 % (11.6-14.6); RBC Distribution Width SD 41.8 fl (35.1-43.9); Red Blood Count 4.73 M/mm3 (4.2-5.4); White Blood Count 10.4 K/mm3 (4.4-11.0)
[2019-03-19 12:38] LABS: Anion Gap 5 (5-15); BUN 20 mg/dL (7-18); BUN/Creat Ratio 22.9 RATIO (10-20); Calcium,Total 9.5 mg/dL (8.5-10.1); Chloride 105 mmol/L (98-107); Creatinine, Serum 0.87 mg/dL (0.55-1.02); EST Glomerular Filtration Rate 72 mL/min (>60); Est Glom Filt Rate - Afr Amer 88 mL/min (>60); Glucose 84 mg/dL (74-106); Partial Thromboplast Time 24.3 Seconds (24.1-36.2); Potassium 4.4 mmol/L (3.5-5.1); Sodium Level 136 mmol/L (136-145)
== END ==
PROVIDERS: Family Provider Family Medicine; PCP Family Medicine; Referring Provider Family Medicine; Visit Provider Family Medicine
DX: Z01.818 Encounter for other preprocedural examination (principal)
CPT/HCPCS: 36415; 80048; 85027; 85610; 85730

== ENCOUNTER 2019-04-14 05:36 | Day surgery (SDC) | payer OTHER, SELFPAY ==
--- NOTE | 2019-04-01 21:15 | PCM.HP.BLA ---
History and Physical Patient Name: Sheron MartiOB: 1965 From: JESÚS REYNOLDS PA-C DATE OF SURGERY: 04/14/2019 SCHEDULED PROCEDURE: left total hip arthroplasty HISTORY OF PRESENT ILLNESS: Preoperative history and physical exam was performed on April 01, 2019. This is a 53-year-old female who has been having ongoing pain in the left hip for the past 10 months. Patient underwent a previous outpatient right total hip arthroplasty on 11/18/[address] Power Britton. She is doing well with regards to her right hip. Patient states she has intermittent, dull, aching, sharp, stabbing and soreness in the left hip. She has increased pain going up and down stairs and walking. Patient has difficult time with activities of daily living including getting dressed, performing housework, shopping, and leisure activities such as walking her dog, working in the flower bed/gardening. Patient states she has tried conservative measures consisting of rest, ice, elevation with minimal relief. She is complaining of pain in the groin. Patient has been trying oral medications consisting of Advil and Tylenol with only minimal relief. Patient denies any previous surgeries on the left hip. Patient has medical history pertinent for hypertension. She currently denies chest pain, shortness of breath, fevers chills, recent infections. After failing conservative measures and discussing treatment options at Dr. Power Britton, the patient would like to proceed with a left total hip arthroplasty. Patient has obtain surgical clearance from the primary care physician in which she is all ready done lab work and EKG. REVIEW OF SYSTEMS: ROS: Const: Denies change in appetite, fever, hard of hearing, vision problems and weight change CV: Denies chest pain, heart murmur, irregular heartbeat and peripheral vascular disease. Resp: Denies asthma, cough, pneumonia, sleep apnea, SOB, tuberculosis and wheezing. GI: Denies constipation, diarrhea, difficulty swallowing, heartburn, nausea, bloody stools and vomiting. : Urinary: denies incontinence. Musculo: Reports limp, trouble walking and weakness, but denies leg swelling. Skin: Denies Raynaud's, history of shingles and tattoo. Neuro: Denies ambulatory dysfunction, dizziness, numbness/tingling and tremor. Psych: Denies anxiety, depression, insomnia, mental illness and stress. Jose Raul/Lymph: Denies anemia, bleeding/bruising tendency and past transfusion. Reviewed, no changes. PAST MEDICAL HISTORY: Advance Care Plan: Other Directive, POA Effective Date: 04/01/2019 Other Directive, LIVING WILL Effective Date: 04/01/2019 PMH: Medical Problems: Hypercholesterolemia, High Blood Pressure Accidents: None Surgical Hx: Breast Reduction - (2006) [facility] Hip Replacement RT - (10/21/2017) [email or web address]@[employer] [employer] Anesthesia Complications: None Assistive Devices: None Reviewed, no changes. 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 Personal Habits: Cigarette Use: Never Smoked Cigarettes.Alcohol: Occasionally.Drug Use: Denies Use.Enjoy Exercising: Exercises 1-3 X/Week. Reviewed, no changes. VITALS: Ht: 66 Wt: 238lb Wt k.957 BMI: 38.4 BP: 140/184 Pulse: 70 Resp: 16 T: 97.9 T: 36.6C ALLERGIES: No Known Drug Allergy MEDICATIONS: Meloxicam 7.5 mg 1 by mouth twice a day, Famotidine 20 mg 1 by mouth every day, Promethazine HCL 12.5 mg 1-2 tablets by mouth every 6 hours, Oxycodone HCL 5 mg 1 by mouth every 6 hours, Atenolol 50 mg 1 tab PO daily, Crestor 5 mg 1 tab PO daily, Multi Vitamin 1po qday, Losartan Potassium 50 mg 1po qday, Tylenol 325 mg 1po qday, Advil 200 mg 1po qday PRE-OP EXAM: General appearance:NORMAL Other: Eyes: Conjunctivae and lids: NORMAL Pupils: ERR Ears, Nose, Mouth, and Throat: NORMAL Other: Inspection of lips, teeth and gums: NORMAL Other: Neck: Examination of neck: no masses noted. Respiratory: Assessment of respiratory effort: NORMAL Other: Auscultation of lungs: clear to auscultation no wheezes, rhonchi or rales. Cardiovascular: Auscultation of heart: regular rate and rhythm, no murmurs, gallops or rubs. Gastrointestinal: Exam of abdomen: soft, nontender, nondistended bowel sounds present. PHYSICAL EXAMINATION: Patient does walk with an antalgic gait. Patient has tenderness to palpation on the left hip at the lateral/greater trochanter. Range of motion left hip: Flexion 80, internal rotation neutral, external rotation 35. She does have crepitus with range of motion. Patient has pain with flexion, adduction, and external rotation. Sensation intact to light touch. Neurovascularly intact. IMAGING STUDIES: Previous x-rays of the left hip reveals joint space narrowing with subchondral sclerosis, osteophyte formation consistent with severe osteoarthritis of the left hip. IMPRESSION: 1. Severe left hip osteoarthritis 2. Presence of right total hip arthroplasty 3. Hypertension 4. Hypercholesterolemia PLAN: Dr. Power Britton did discuss and review with the patient all treatment options including surgical versus nonsurgical options. Patient does wish to proceed with the above-stated procedure. Potential risks, benefits, and complications of the procedure were discussed in detail including but not limited to , infection, nerve and blood vessel damage, persistent pain, numbness, tingling, paresthesias, blood clot, pulmonary embolism, and requirement for possible further surgery. The patient expressed full understanding and has no further questions for the doctor. Patient does agree to proceed with the above-stated procedure and has signed the surgery consent form. This dictation was created using voice recognition software. Phonetic and/or grammatical errors may exist.. ___ I have re-examined the patient. There are no clinical changes since date of exam. ___ See progress notes for changes. ___ Dictated on admission Date: Time: Signature:
[2019-04-07 11:17] VITALS: BP 133/81; PULSE 55; RESP 16; TEMP 36.8; O2SAT 97; BMI 38.9
[2019-04-14] VITALS (8 sets, daily range): BP systolic 103–139; BP diastolic 59–77; PULSE 59–76; RESP 16–18; TEMP 36–37.3; O2SAT 93–100; BMI 38.9
[2019-04-14 05:59] LABS: Internal QC Validated? YES +Cl - CLEAR BKGD; Pregnancy, Urine Negative Negative
[2019-04-14] MEDS: Celecoxib 200 MG Capsule 400 MG PO (06:27)
[2019-04-14] MEDS: Scopolamine 1mg/72hr Patch 1 PATCH TRANSDERM. (06:28)
[2019-04-14] MEDS: Gabapentin 600 MG Tablet PO (06:28)
[2019-04-14] MEDS: Acetaminophen 500 MG Tablet 1000 MG PO ×2 (06:28→14:00)
[2019-04-14] MEDS: Magnesium Sulfate 4gm/100mL 4 GM/100 ML IV.SOLN. IV (06:32)
[2019-04-14] MEDS: Lactated Ringers 1,000 ML 75 ML IV ×2 (06:38→09:35)
[2019-04-14 06:40] LABS: Bedside Glucose 90 mg/dL (70-110)
[2019-04-14] MEDS: Cefazolin 2 GM in 0.9% Normal Saline 100 ML IV (07:23)
[2019-04-14] MEDS: dexAMETHasone 10 MG/ML Vial IV (07:40)
--- NOTE | 2019-04-14 08:25 | RAD_ITS ---
STUDY: X-RAY - PELVIS AND LEFT HIP REASON FOR EXAM: Female, 53 years old. Left hip joint replacement TECHNIQUE: 2 views of the pelvis and hip. COMPARISON: None. FINDINGS: There is a non-specific bowel gas pattern. Normal visualized soft tissue structures. Unremarkable bilateral iliac wings, sacroiliac joints and visualized sacrum. Intact bilateral superior and inferior pubic rami. Unremarkable pubic symphysis. Normal bilateral ischial tuberosities. Patient with new left hip joint replacement, with anatomical positioning of the prosthesis on the left side. Stable underlying right hip joint replacement. RAD/Hip 1 view with Pelvis IMPRESSION: New left hip joint replacement, with anatomical positioning of the prosthesis on the left side. Electronically Signed: Chris Espinal MD at 12:36 EDT Tel [phone], Service support ,
--- NOTE | 2019-04-14 08:45 | PCM.OPRPT ---
Report of Operation Date of Procedure: 04/14/19 Pre-Operative Diagnosis: Left hip primary osteoarthritis Post-Operative Diagnosis: Left hip primary osteoarthritis Surgery/Procedure Performed:: Left hip minimally invasive direct anterior total hip replacement Description of Surgical Findings:: Stable hip with equal leg lengths vascular neurologist: Juana Sandoval Type of Anesthesia:: Spinal Anesthesiologist: Michael Loera Special Medications: 2 g Ancef, 1 g TXA at incision, 1 g TXA closure, 10 mg Decadron, joint cocktail (5 mg Duramorph, 30 mL of 0.5% Ropivicaine, 1000 units of epinephrine, 30 mg of Toradol) Specimen's removed: Bony cuts Estimated Blood Loss (mL): 250 mL Fluids Replaced: 2000 mL crystalloid Description of Procedure: Components used: 1. Accolade 2 [place] femoral stem size 3 127? 2. [place] trident 2 acetabular shell size 52 mm 3. Ashkan X3 polyethylene E 4. [place] Biolox delta 36mm, +2.5mm femoral head Brief history operative indications: 53F yo L who failed conservative measures for their hip osteoarthritis. X-rays were consistent with osteoarthritis including joint space narrowing, osteophyte formation and subchondral cysts. Total hip replacement was discussed with the patient with risks and benefits including but not limited to blood loss, DVTs, PEs, neurovascular damage, dislocation, general risks of anesthesia including loss of life. Patient demonstrated an understanding medical clearance is obtained the patient was consented for surgery. Procedure: On the date of procedure the patient's L hip was marked in the preoperative area. Patient was then taken back to the operating room where anesthesia assumed control of the C-spine and airway and administered anesthetic. Patient was transferred to the operating table and placed in the supine position. The hips were placed at the break of the bed and a sacral bump was placed. The L lower extremity was then prepped out in a sterile fashion using chlorhexidine while the surgeon scrubbed. The PA was vital in the positioning of the patient. Upon reentering the room the L lower extremity was draped in the standard orthopedic fashion and the incision was marked. A timeout was called and everyone agreed upon the side, the site, the procedure be performed, antibody given, and patient's identity. At this time incision was made through skin, subcutaneous tissue, and fat down to fascia. The fascia was then incised and the TFL was retracted laterally. A retractor was placed on the lateral border of the femoral neck. Attention was directed to the inferior portion of the approach and all crossing vessels were identified and appropriately coagulated. A retractor was then placed on the medial portion of the femoral neck. The anterior capsule was then cleared of all soft tissue and then H shaped capsulotomy was made. The retractors were then placed inside the capsule. The femoral neck was identified and a cleanup cut was made. At this time a power corkscrew was used to remove the femoral head. Attention was then turned toward the acetabulum where the soft tissues were appropriately retracted and the acetabulum was sequentially reamed to 52 mm. A 52 mm cup was then selected and impacted into place. Acetabular liner was impacted into place and locking mechanism was verified. The position of the acetabular cup was then verified under live fluoroscopy. Attention was then turned to the femur. Soft tissue releases on the medial and lateral femoral neck were appropriately done, the leg was externally rotated and lateralized. A Soto retractor was placed medially and proximally to the greater trochanter this allowed appropriate visualization and exposure of the femoral canal. Rongeour was then used to remove excess lateral bone. A canal finder and entry broach were used to open the proximal canal. Once we verified we were down the femoral canal we subsequently broached up to a size 3 femur. The appropriate neck was placed in the previously selected head was trialed with a +2.5 mm neck. Traction was pulled and the hip was reduced with internal rotation. Once it was appropriately reduced and stability was checked. There was minimal shuck, equal leg lengths and appropriate stability with hyperextension and external rotation as well as with 90? flexion and internal rotation. Fluoroscopy was then also used to verify the position of the components and leg lengths using the contralateral side for comparison. The trial components were then dislocated the proximal femur was again exposed and the components were removed from the wound. The final components were verified and opened. The wound was copiously irrigated out with normal saline. The acetabulum was checked for any residual debris. The final components were placed and impacted. Traction and internal rotation were again used to reduce the hip. After adequate reduction the hip remained stable with appropriate leg lengths. The final components were once again checked with live fluoroscopy and were found to be satisfactory. The wound was then copiously irrigated with normal saline once more, and hemostasis was obtained. Closure was then done using #1 Vicryl runner to close the fascia. A 2-0 vicryl interuppted sutures were used to close the subcutaneous skin. A 3-0 Monocryl and Steri-Strips were used for final skin closure. A Silverlon dressing was placed. Patient was awakened by anesthesia and transferred to the [facility]. Patient was then transferred to the PACU for recovery. Postoperative plan: Patient will get 24 hours postop antibiotics. Patient will get in-house physical therapy and will be weight-bear as tolerated. Patient will follow up in office in 2 weeks for a wound check and x-rays. Grafts/Implants Used: Ashkan - Complications No intraoperative complications - Admit VTE Documentation VTE Present on Admission: No VTE Mechan Device Prophylaxis: SCD's VTE Pharm Prophylaxis ordered?: Yes
[2019-04-14] MEDS: Lactated Ringers 1,000 ML 500 ML IV (09:35)
--- NOTE | 2019-04-14 09:40 | RAD_ITS ---
STUDY: X-RAY - PELVIS AND LEFT HIP REASON FOR EXAM: Female, 53 years old. Left hip joint replacement TECHNIQUE: 2 views of the pelvis and hip. COMPARISON: 10/16/2018. FINDINGS: There is a non-specific bowel gas pattern. Normal visualized soft tissue structures. Unremarkable bilateral iliac wings, sacroiliac joints and visualized sacrum. Intact bilateral superior and inferior pubic rami. Unremarkable pubic symphysis. Normal bilateral ischial tuberosities. Patient with new left hip joint replacement, with anatomical positioning of the prosthesis on the left side. Stable underlying right hip joint replacement. RAD/Hip Min 2 Views (Portable) IMPRESSION: New left hip joint replacement, with anatomical positioning of the prosthesis on the left side. Electronically Signed: Chris Espinal MD at 13:56 EDT Tel [phone], Service support ,
[2019-04-14] MEDS: Cefazolin 1 GM/50 ML BAG IV (13:28)
== END 2019-04-14 15:00 | disposition home or self-care (01) ==
LOC: SDC 05:36 → AC 05:37
PROVIDERS: Anesthesiology; Family Provider Family Medicine; PCP Family Medicine; Referring Provider Specialist; Visit Provider Specialist
PROC: (CPT 27284; principal; 2019-04-14 07:05)
DX: M16.12 Unilateral primary osteoarthritis, left hip (principal); I10 Essential (primary) hypertension; E78.00 Pure hypercholesterolemia, unspecified; Z96.641 Presence of right artificial hip joint; Z79.899 Other long term (current) drug therapy
CPT/HCPCS: 01214; 27130; 73501; 73502; 76000; 81025; 82962; 87081; 97161; C1776; J7120; A4216

== ENCOUNTER → 2019-05-25 09:09 | Outpatient (CLI) | payer OTHER, SELFPAY ==
[2019-04-14 06:06] VITALS: BMI 38.9
--- NOTE | 2019-05-25 09:13 | RAD_ITS ---
STUDY: X-RAY - PELVIS AND LEFT HIP REASON FOR EXAM: Female, 53 years old. Arthroplasty TECHNIQUE: 2 views of the pelvis and hip. COMPARISON: 10/16/2018 FINDINGS: There is a non-specific bowel gas pattern. Normal visualized soft tissue structures. Normal bilateral iliac wings, sacroiliac joints and visualized sacrum. Normal bilateral superior and inferior pubic rami. Normal pubic symphysis. Normal bilateral ischial tuberosities. Interval left hip arthroplasty. The prosthesis appears located. No ostial lysis to suggest loosening.. RAD/HIP, UNI W/ Pelvis 2-3 Views IMPRESSION: Normal x-ray examination of the pelvis and hip after interval arthroplasty. Electronically Signed: Walter Solis MD at 10:33 EDT Tel , Service support ,
== END ==
PROVIDERS: Family Provider Family Medicine; PCP Family Medicine; Referring Provider Specialist; Visit Provider Specialist
DX: Z96.642 Presence of left artificial hip joint (principal)
CPT/HCPCS: 73502

== ENCOUNTER 2019-05-28 08:00 | Outpatient (RCR) | payer OTHER, SELFPAY ==
[2019-04-14 06:06] VITALS: BMI 38.9
--- NOTE | 2019-05-07 11:30 | HP.PTEVAL_ITS ---
Patient's Visit Information JARROD JOSUE is a 53 year old F referred to Physical Therapy by Kurtis Dvaila PA-C with a diagnosis of PRESENCE OF LEFT ARTIFICIAL HIP JOINT. Date of Evaluation: 05/07/19 Physical Therapist: Jeff Pereyra, PT, Cert MDT, OCS - Visit Plan Frequency: 2x /Week Duration: 4 Weeks Plan: ANTERIOR APPROACH THR. PT INTERVENTIONS PROGRESSIVE BALANCE TRAINING,PRE'S HIP/KNEE,ENDURANCE,ROM - Subjective Findings: This 53 y/o female presents to physical therapy with left THR . Patient underwent s/p left THR anterior approach done by DR Britton on April 14 at [facility] .Patient d/c same day outpatient. Patient had progressive left DJD of left hip. Attempted injections didnt help. Patient had [facility] PT for 2weeks. Patient plan to see MD May 26. Patient has no pain. Patient symptoms are numbness. Patient sleeping good. Patient doing exerises. Patient RTW Jun 14. Patient surgery of THR impairs ADL's and job demands/housework tasks. Patient uses cane community distance s. 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 SOCAIL: - Objective POSTURE: mild foward posture. NEURO: denies parathesia/tingling. BALANCE: good - no device. GAIT: reciprocal pattern mild decrease stance time. STAIRS: ascend/descend 12 steps with rail alternate. MMT: quads/hams 4/5,hip flexion /abd 4-/5,ankle 4/5. SLS: < 5seconds. AROM: hip flexion 95 degrees,abd 30 degrees - Goals Goal 1:: Patient to RTW and ADL'S with diffculty. Goal Time Frame: 4-6 Weeks Goal 2:: Patient to normalize gait pattern community distances with cane. Goal Time Frame: 2-4 Weeks Goal 3:: Patient to improve hip strength 4/5 to good to improve gait. Goal Time Frame: 2-4 Weeks Goal 4:: Patient to LFES score by 10 points to improve QOL. Goal Time Frame: 2-4 Weeks Goal 5:: Patient to ascend/descend 12 steps with no rails alternating. Goal Time Frame: 2-4 Weeks Goal 6:: Normal balance. Goal Time Frame: 2-4 Weeks - Rehabilitation Potential Physical Therapy Diagnosis: This patient had left anterior hip replacement with decrease function gait with endurance ,strength hip,balance and RTW thus benifit from skilled PT. Rehabilitation Potential: Good - Anticipated Interventions Patient/Client Instruction: Educate patient on: Condition, Plan of Care For the Purpose of:: To decrease pain, To increase ROM, To improve muscle performance and motor function, To improve ability to perform ADL's, To increase tolerance to activity/condition/position, To improve ability of physical actions for home/community/work/leisure, To improve health of tissue, To decrease soft tissue restriction, To increase flexibility/ROM, To improve endurance, To improve balance, To improve ability to perform tasks related to life management Therapeutic Exercise to Include: Strength training, Endurance training, Balance training, Gait and locomotor training, Active ROM Comment: HIP/KNEE For the Purpose of:: To improve muscle performance and motor function, To improve ability to perform ADL's, To increase tolerance to activity/condition/position, To improve performance and independence with ADL's, To improve ability of physical actions for home/community/work/leisure, To improve gait and locomotor functions, To improve endurance, To improve balance, To improve safety with gait, To improve ability to perform tasks related to life management Thank you for the opportunity to evaluate your patient. For Medicare and Medicare HMO plans, please review the plan of care and approve it. It will need to be FAXED BACK to us at [phone] for Medicare purposes. For Medicare only, by signing this I certify the plan of care. Please let me know if there are questions or concerns regarding this plan of care. Physician Signature: Date:
--- NOTE | 2019-05-28 08:29 | HP.PTDCSUM_ITS ---
HP - PT D/C Summary It has been my pleasure to treat JARROD JOSUE under orders from Kurtis Davila PA-C, for the diagnosis of PRESENCE OF LEFT ARTIFICIAL HIP JOINT for a total of 6 visit(s). Discharge Date: 05/28/19 Please see the following information for a summary of their discharge status. - Subjective Subjective: Doing great.. okay for d/c. RTW IN 1 WK . Doing ALL ADL'S . X- RAYS LOOKED GOOD. - Overall Improvement % Improvement: 90 - Objective Objective/Function: POSTURE: WFL. GAIT: NORMAL SRIRAM. MMT: quads/hams 5/5,hip 4/5 hip abd. flexion 4/5. STAIRS: ATERNATE WITH STAIRS - Goals Goal 1:: Patient to RTW and ADL'S with diffculty. Goal Progress: Goal Met Goal 2:: Patient to normalize gait pattern community distances with cane. Goal Progress: Goal Met Goal 3:: Patient to improve hip strength 4/5 to good to improve gait. Goal Progress: Goal Met Goal 4:: Patient to LFES score by 10 points to improve QOL. Goal Progress: Goal Met Goal 5:: Patient to ascend/descend 12 steps with no rails alternating. Goal Progress: Goal Met Goal 6:: Normal balance. Goal Progress: Goal Met - Plan Plan: D/C - D/C Information Discharge Comments: HEP If there are questions or concerns regarding this patient's physical therapy, please feel free to call me at [phone]. Thank you for the referral of this patient. Sincerely, Jeff Pereyra, PT, Cert MDT, OCS
== END 2019-05-28 19:00 | disposition home or self-care (01) ==
LOC: PT 08:00
PROVIDERS: Family Provider Family Medicine; PCP Family Medicine; Referring Provider Physician Assistant Surgical; Visit Provider Physician Assistant Surgical
DX: Z96.642 Presence of left artificial hip joint (principal)
CPT/HCPCS: 97110; 97162

== ENCOUNTER → 2019-05-30 14:31 | Outpatient (CLI) | payer OTHER, SELFPAY ==
[2019-05-30 09:07] VITALS: BMI 38.9
[2019-05-30 14:43] LABS: Color, Urine Yellow (Yellow); Glucose, Dipstick Normal (Normal); Ketone-Dipstick Negative (Negative); Leukocyte Esterase-Dipstick 100 /ul (Negative); Nitrite-Dipstick Negative (Negative); Occult Blood-Urine 150 /ul (Negative); Protein-Dipstick 15 mg/dl (Negative); Urine Bilirubin Dipstick Negative (Negative); Urine Clarity Sl. Cloudy (Clear); Urine Urobilinogen Normal (Normal)
[2019-05-30 14:53] LABS: Bacteria 1+ /hpf (None Seen); Mucous, Urine RARE /hpf (<or=2+); Red Blood Cells-Urine 0-5 SEEN /hpf (0-5); Squamous Epithelial Cells - UA 0-5 SEEN /hpf (5-10); White Blood Cells 10-25 SEEN /hpf (0-5)
== END ==
PROVIDERS: Family Provider Family Medicine; PCP Family Medicine; Referring Provider Physician Assistant; Visit Provider Physician Assistant
DX: R30.0 Dysuria (principal)
CPT/HCPCS: 81001; 87086; 87088; 87186

== ENCOUNTER → 2019-08-02 14:54 | Outpatient (CLI) | payer OTHER, SELFPAY ==
[2019-05-30 09:07] VITALS: BMI 38.9
--- NOTE | 2019-08-02 14:59 | BI_ITS ---
MAMMOGRAPHY - BILATERAL SCREENING REASON FOR EXAM: Female, 53 years old. Routine annual screening examination. PERTINENT HISTORY: Non-contributory. History of bilateral breast reduction surgery. TECHNIQUE: Digital bilateral breast charity (3D mammographic acquisition) in the CC and MLO projections. 2-D mediolateral oblique (MLO) and craniocaudad (CC) views of both breasts were obtained. CAD: Full Field Digital Mammography with Computer Added Detection was performed. COMPARISON: Comparison is made with prior study dated July 21, 2018 and July 11, 2017. FINDINGS: Breast Composition: The breasts are almost entirely fatty. There are no dominant masses or suspicious calcifications. No other significant abnormalities are identified. There has been no significant change since the prior study. BI/SCREEN MAMM (CAD) W/CHARITY BILAT IMPRESSION: Stable bilateral screening mammogram. Yearly follow-up mammogram recommended. (A) ASSESSMENT CATEGORY: BIRADS Category 1: Negative. A letter regarding these results will be sent to the patient by the facility within 30 days. Approximately 10% of breast cancers are not detected by mammography. A normal mammogram should not delay biopsy of a clinically suspicious abnormality. [id number] Electronically Signed: Aden Zacarias, at 8:17 EST , Service support ,
== END ==
PROVIDERS: Family Provider Family Medicine; PCP Family Medicine; Referring Provider Family Medicine; Visit Provider Family Medicine
DX: Z12.31 Encounter for screening mammogram for malignant neoplasm of breast (principal)
CPT/HCPCS: 77063; 77067

== ENCOUNTER → 2020-03-13 10:11 | Outpatient (CLI) | payer OTHER, SELFPAY ==
[2020-01-19 16:44] VITALS: BMI 38.9
[2020-03-13 15:52] LABS: Bacteria 0 SEEN /hpf (None Seen); Mucous, Urine 0 SEEN /hpf (<or=2+)
[2020-03-13 16:21] LABS: Color, Urine Straw (Yellow); Glucose, Dipstick Normal (Normal); Ketone-Dipstick Negative (Negative); Leukocyte Esterase-Dipstick 500 /ul (Negative); Nitrite-Dipstick Negative (Negative); Occult Blood-Urine 150 /ul (Negative); Protein-Dipstick 30 mg/dl (Negative); Specific Gravity, Urine 1.015 (1.002-1.030); Urine Bilirubin Dipstick Negative (Negative); Urine Clarity Cloudy (Clear); Urine Urobilinogen Normal (Normal)
[2020-03-13 16:51] LABS: Squamous Epithelial Cells - UA 0-5 SEEN /hpf (5-10)
[2020-03-13 16:54] LABS: Amorphous Sediment 1+; Red Blood Cells-Urine 0-5 SEEN /hpf (0-5); White Blood Cells 10-25 SEEN /hpf (0-5)
== END ==
PROVIDERS: PCP Family Medicine; Referring Provider Physician Assistant Surgical; Visit Provider Physician Assistant Surgical
DX: R35.0 Frequency of micturition (principal)
CPT/HCPCS: 81001; 87077; 87086; 87088; 87186

== ENCOUNTER → 2020-03-21 15:27 | Outpatient (CLI) | payer OTHER, SELFPAY ==
[2020-01-19 16:44] VITALS: BMI 38.9
--- NOTE | 2020-03-21 15:35 | RAD_ITS ---
STUDY: X-RAY - PELVIS AND LEFT HIP REASON FOR EXAM: Female, 54 years old. Follow up left artificial hip joint TECHNIQUE: 3 views of the pelvis and left hip. COMPARISON: 05/25/19 FINDINGS: There are stable postsurgical changes from bilateral hip arthroplasty. The hardware is intact and alignment is satisfactory. There is no acute fracture or dislocation in the pelvis or left hip. RAD/HIP, UNI W/ Pelvis 2-3 Views IMPRESSION: Stable postsurgical changes from bilateral hip arthroplasty with intact hardware in satisfactory alignment. No fracture or dislocation in the pelvis or left hip. Electronically Signed: Power Reich, at 16:35 EDT Tel , Service support ,
== END ==
PROVIDERS: PCP Family Medicine; Referring Provider Specialist; Visit Provider Specialist
DX: Z96.642 Presence of left artificial hip joint (principal)
CPT/HCPCS: 73502

== ENCOUNTER → 2020-03-29 16:21 | Outpatient (CLI) | payer OTHER, SELFPAY ==
[2020-03-29 14:24] VITALS: BMI 38.9
[2020-03-29 16:53] LABS: Bacteria 0 SEEN /hpf (None Seen); Mucous, Urine 0 SEEN /hpf (<or=2+)
[2020-03-29 17:17] LABS: Color, Urine Red (Yellow); Glucose, Dipstick Normal (Normal); Ketone-Dipstick Negative (Negative); Leukocyte Esterase-Dipstick 500 /ul (Negative); Nitrite-Dipstick Positive (Negative); Occult Blood-Urine 250 /ul (Negative); Protein-Dipstick 100 mg/dl (Negative); Specific Gravity, Urine 1.005 (1.002-1.030); Urine Clarity Turbid (Clear); Urine Urobilinogen 8 mg/dl (Normal)
[2020-03-29 17:30] LABS: Urine Bilirubin Dipstick 6 mg/dL (Negative)
[2020-03-29 17:33] LABS: Red Blood Cells-Urine > 100 SEEN /hpf (0-5)
[2020-03-29 17:35] LABS: Squamous Epithelial Cells - UA 5-10 SEEN /hpf (5-10); White Blood Cells >100 SEEN /hpf (0-5)
== END ==
PROVIDERS: PCP Family Medicine; Referring Provider Physician Assistant; Visit Provider Physician Assistant
DX: R30.0 Dysuria (principal)
CPT/HCPCS: 81001; 87086; 87088

== ENCOUNTER → 2020-05-09 12:58 | Outpatient (CLI) | payer OTHER, SELFPAY ==
[2020-05-09 10:43] VITALS: BMI 38.9
[2020-05-09 13:49] LABS: Bacteria 0 SEEN /hpf (None Seen); Mucous, Urine 0 SEEN /hpf (<or=2+)
[2020-05-09 14:03] LABS: Color, Urine Red (Yellow); Glucose, Dipstick Normal (Normal); Ketone-Dipstick 5 mg/dl (Negative); Leukocyte Esterase-Dipstick 500 /ul (Negative); Nitrite-Dipstick Negative (Negative); Occult Blood-Urine 250 /ul (Negative); Protein-Dipstick 100 mg/dl (Negative); Specific Gravity, Urine 1.015 (1.002-1.030); Urine Bilirubin Dipstick Negative (Negative); Urine Clarity Cloudy (Clear); Urine Urobilinogen 1 mg/dl (Normal); Urine pH 6.5 (5.0 - 8.0)
[2020-05-09 14:13] LABS: Red Blood Cells-Urine 50-100 SEEN /hpf (0-5); Squamous Epithelial Cells - UA 0-5 SEEN /hpf (5-10); White Blood Cells >100 SEEN /hpf (0-5)
== END ==
PROVIDERS: PCP Family Medicine; Referring Provider Physician Assistant Surgical; Visit Provider Physician Assistant Surgical
DX: R30.0 Dysuria (principal)
CPT/HCPCS: 81001; 87086; 87088; 87186

== ENCOUNTER → 2020-05-10 15:24 | Outpatient (CLI) | payer OTHER, SELFPAY ==
[2020-03-29 14:24] VITALS: BMI 38.9
[2020-05-09 10:43] VITALS: BMI 38.9
--- NOTE | 2020-05-10 15:29 | US_ITS ---
STUDY: ULTRASOUND OF THE FEMALE PELVIS - COMPLETE REASON FOR EXAM: Female, 54 years old. Follow-up fibroids. LMP: 05/04/2020. TECHNIQUE: Transabdominal and Transvaginal TECHNICAL QUALITY: Adequate. COMPARISON: Large 2018. FINDINGS: The uterus is anteverted and is in a midline position. The uterus measures 10.2 x 7.0 x 4.2 cm. There is a Nabothian cyst of the cervix. The endometrium measures 4 mm in thickness, and is hyperechoic. There is no demonstrated endometrial mass. There are multiple uterine fibroids. There is a 6.1 x 4.1 x 5.5 cm hypoechoic fibroid in the lower uterine segment/ upper cervix. In the left fundus there is a 3.4 x 3.4 x 3.1 cm partially calcified fibroid. In the anterior uterus, there is a 3 x 3.8 x 2.4 cm fibroid. I.U.D. - The patient does not have an I.U.D. The right ovary is visualized. The right ovary measures 3.8 x 2.3 x 2.4 cm. There are multiple follicles of the right ovary without a dominant cyst. There is no visualized right adnexal mass or complex lesion. There is normal arterial and normal venous vascularity. The left ovary is not visualized. There is no visualized left adnexal mass or complex lesion. There is no fluid in the cul-de-sac. The pre void volume of the bladder was 250 ml. The urinary bladder is grossly normal. Polycystic ovary disease: No. US/Transvaginal Non- IMPRESSION: 1. Fibroid uterus. This appears grossly unchanged. 2. Normal right ovary. Left ovary is not visualized. Electronically Signed: Armando Steel DO at 18:54 EDT Tel [phone], Service support ,
--- NOTE | 2020-05-10 15:29 | US_ITS ---
STUDY: ULTRASOUND OF THE FEMALE PELVIS - COMPLETE REASON FOR EXAM: Female, 54 years old. Follow-up fibroids. LMP: 05/04/2020. TECHNIQUE: Transabdominal and Transvaginal TECHNICAL QUALITY: Adequate. COMPARISON: Large 2018. FINDINGS: The uterus is anteverted and is in a midline position. The uterus measures 10.2 x 7.0 x 4.2 cm. There is a Nabothian cyst of the cervix. The endometrium measures 4 mm in thickness, and is hyperechoic. There is no demonstrated endometrial mass. There are multiple uterine fibroids. There is a 6.1 x 4.1 x 5.5 cm hypoechoic fibroid in the lower uterine segment/ upper cervix. In the left fundus there is a 3.4 x 3.4 x 3.1 cm partially calcified fibroid. In the anterior uterus, there is a 3 x 3.8 x 2.4 cm fibroid. I.U.D. - The patient does not have an I.U.D. The right ovary is visualized. The right ovary measures 3.8 x 2.3 x 2.4 cm. There are multiple follicles of the right ovary without a dominant cyst. There is no visualized right adnexal mass or complex lesion. There is normal arterial and normal venous vascularity. The left ovary is not visualized. There is no visualized left adnexal mass or complex lesion. There is no fluid in the cul-de-sac. The pre void volume of the bladder was 250 ml. The urinary bladder is grossly normal. Polycystic ovary disease: No. US/Pelvic (Non ) IMPRESSION: 1. Fibroid uterus. This appears grossly unchanged. 2. Normal right ovary. Left ovary is not visualized. Electronically Signed: Armando Steel DO at 18:54 EDT Tel [phone], Service support ,
== END ==
PROVIDERS: PCP Family Medicine; Referring Provider Obstetrics & Gynecology; Visit Provider Obstetrics & Gynecology
DX: Z12.31 Encounter for screening mammogram for malignant neoplasm of breast (principal); D25.9 Leiomyoma of uterus, unspecified
CPT/HCPCS: 76830; 76856

== ENCOUNTER → 2020-05-17 14:19 | Outpatient (CLI) | payer OTHER, SELFPAY ==
[2020-05-09 10:43] VITALS: BMI 38.9
[2020-05-17 15:26] LABS: AST(SGOT) 32 U/L (15-37); Alanine Aminotransfer ALT/SGPT 39 U/L (13-56); Albumin, Serum 3.4 g/dL (3.2-5.0); Alkaline Phosphatase 59 U/L (45-117); Bilirubin, Direct 0.07 mg/dL (0.00-0.30); Globulin 3.9 g/dL (2.2-4.2); Protein, Total 7.3 g/dL (6.4-8.2)
== END ==
PROVIDERS: PCP Family Medicine; Referring Provider Family Medicine; Visit Provider Family Medicine
DX: R94.5 Abnormal results of liver function studies (principal)
CPT/HCPCS: 36415; 80076

== ENCOUNTER → 2020-08-03 14:56 | Outpatient (CLI) | payer OTHER, SELFPAY ==
[2020-03-29 14:24] VITALS: BMI 38.9
[2020-05-09 10:43] VITALS: BMI 38.9
--- NOTE | 2020-08-03 14:57 | BI_ITS ---
MAMMOGRAPHY - BILATERAL SCREENING REASON FOR EXAM: Female, 54 years old. Routine annual screening examination. PERTINENT HISTORY: Non-contributory. History of prior bilateral breast reduction and left ultrasound-guided breast biopsy. TECHNIQUE: Digital bilateral breast charity (3D mammographic acquisition) in the CC and MLO projections. 2-D mediolateral oblique (MLO) and craniocaudad (CC) views of both breasts were obtained. CAD: Full Field Digital Mammography with Computer Added Detection was performed. COMPARISON: Comparison is made with prior study dated 08/02/2019 and 07/21/2018. FINDINGS: Breast Composition: The breasts are almost entirely fatty. There are no dominant masses or suspicious calcifications. Stable small benign-appearing bilateral axillary lymph nodes. No other significant abnormalities are identified. There has been no significant change since the prior study. BI/SCREEN MAMM (CAD) W/CHARITY BILAT IMPRESSION: Stable bilateral screening mammogram. Yearly follow-up mammogram recommended. (A) ASSESSMENT CATEGORY: BIRADS Category 2: Benign. A letter regarding these results will be sent to the patient by the facility within 30 days. Approximately 10% of breast cancers are not detected by mammography. A normal mammogram should not delay biopsy of a clinically suspicious abnormality. [id number] Electronically Signed: Aden Zacarias, at 8:10 EST , Service support ,
== END ==
PROVIDERS: PCP Family Medicine; Referring Provider Obstetrics & Gynecology; Visit Provider Obstetrics & Gynecology
DX: Z12.31 Encounter for screening mammogram for malignant neoplasm of breast (principal)
CPT/HCPCS: 77063; 77067

== ENCOUNTER → 2020-10-11 11:38 | Outpatient (CLI) | payer OTHER, SELFPAY ==
[2020-05-09 10:43] VITALS: BMI 38.9
--- NOTE | 2020-10-11 11:50 | RAD_ITS ---
STUDY: X-RAY - PELVIS AND RIGHT HIP REASON FOR EXAM: 3 year follow-up of right hip surgery. TECHNIQUE: 2 views of the pelvis and hip. COMPARISON: Radiographs 03/13/2020. FINDINGS: There are calcified uterine fibroids. Normal bilateral iliac wings, sacroiliac joints and visualized sacrum. Normal bilateral superior and inferior pubic rami. Normal pubic symphysis. Normal bilateral ischial tuberosities. There is a right hip arthroplasty without evidence of complication. RAD/HIP, UNI W/ Pelvis 2-3 Views IMPRESSION: Uncomplicated right hip arthroplasty. Electronically Signed: Rohit Carvajal MD at 13:03 EST Tel , Service support ,
== END ==
PROVIDERS: PCP Family Medicine; Referring Provider Specialist; Visit Provider Specialist
DX: Z96.641 Presence of right artificial hip joint (principal)
CPT/HCPCS: 73502

== ENCOUNTER → 2020-12-24 15:23 | Outpatient (CLI) | payer OTHER, SELFPAY ==
[2020-12-24 08:23] VITALS: BMI 38.9
[2020-12-24 15:24] LABS: Bacteria 0 SEEN /hpf (None Seen); Mucous, Urine 0 SEEN /hpf (<or=2+); Red Blood Cells-Urine 0 SEEN /hpf (0-5)
[2020-12-24 15:27] LABS: Color, Urine Yellow (Yellow); Glucose, Dipstick Normal (Normal); Ketone-Dipstick Negative (Negative); Leukocyte Esterase-Dipstick 500 /ul (Negative); Nitrite-Dipstick Negative (Negative); Occult Blood-Urine 150 /ul (Negative); Protein-Dipstick Negative (Negative); Specific Gravity, Urine 1.005 (1.002-1.030); Urine Bilirubin Dipstick Negative (Negative); Urine Clarity Clear (Clear); Urine Urobilinogen Normal (Normal)
[2020-12-24 15:39] LABS: Squamous Epithelial Cells - UA 0-5 SEEN /hpf (5-10); White Blood Cells 10-25 SEEN /hpf (0-5)
== END ==
PROVIDERS: PCP Family Medicine; Visit Provider Physician Assistant Surgical
DX: N39.0 Urinary tract infection, site not specified (principal)
CPT/HCPCS: 81001; 87077; 87086; 87088; 87186

== ENCOUNTER → 2021-01-31 15:51 | Outpatient (CLI) | payer OTHER, SELFPAY ==
[2020-12-24 08:23] VITALS: BMI 38.9
[2021-01-27 08:57] VITALS: BMI 32.8
--- NOTE | 2021-01-31 15:54 | US_ITS ---
EXAM: US RETROPERITONEAL LIMITED, RENAL : 1965 CLINICAL INDICATION: UTI TECHNIQUE: Limited grayscale and color Doppler sonographic evaluation of the retroperitoneum was performed. This report was created using 3D FUTURE VISION II report [employer] technology. COMPARISON: None. FINDINGS: RIGHT KIDNEY: The right kidney measures 10.5 x 4.0 x 6.1 cm. There is a 1.5 x 1.2 cm anechoic structure on the kidney compatible with a cyst. No hydronephrosis. No shadowing calculus. No perinephric collection is demonstrated. LEFT KIDNEY: The left kidney measures 12.2 x 4.4 x 5.3 cm. BLADDER: The bladder measures 5.8 x 3.1 x 4.4 cm for a volume of 41 mL. The bladder wall measures 2 mm. OTHER FINDINGS: The spleen measures 10.4 cm. US/Kidney and Bladder IMPRESSION: A small anechoic structure on the right kidney compatible with a cyst. No follow-up imaging necessary. No other abnormalities identified. at 0942 Reported and signed by: Joe Sarabia MD Electronically Signed: Joe Sarabia MD at 9:41 EDT Tel , Service support ,
== END ==
PROVIDERS: PCP Family Medicine; Referring Provider Urology; Visit Provider Urology
DX: N39.0 Urinary tract infection, site not specified (principal)
CPT/HCPCS: 76770

== ENCOUNTER → 2021-08-03 15:47 | Outpatient (CLI) | payer OTHER, SELFPAY ==
[2021-01-27 08:57] VITALS: BMI 32.8
--- NOTE | 2021-08-03 15:48 | BI_ITS ---
MAMMOGRAPHY - BILATERAL SCREENING REASON FOR EXAM: Female, 55 years old. Routine annual screening examination. PERTINENT HISTORY: Non-contributory. History of prior bilateral breast reduction surgery. TECHNIQUE: Digital bilateral breast charity (3D mammographic acquisition) in the CC and MLO projections. 2-D mediolateral oblique (MLO) and craniocaudad (CC) views of both breasts were obtained. CAD: Full Field Digital Mammography with Computer Added Detection was performed. COMPARISON: Comparison is made with prior examination dated 08/03/2020 and 08/02/2019. FINDINGS: Breast Composition: The breasts are almost entirely fatty. There are no dominant masses or suspicious calcifications. Stable benign-appearing bilateral axillary lymph nodes. Stable small calcified fibroadenomas in the retroareolar region of the left breast. No other significant abnormalities are identified. There has been no significant change since the prior study. BI/SCRN MAMM (CAD)W/CHARITY BILAT IMPRESSION: Stable bilateral screening mammogram. Yearly follow-up mammogram recommended. (A) ASSESSMENT CATEGORY: BIRADS Category 2: Benign. A letter regarding these results will be sent to the patient by the facility within 30 days. Approximately 10% of breast cancers are not detected by mammography. A normal mammogram should not delay biopsy of a clinically suspicious abnormality. [id number] Electronically Signed: Aden Zacarias MD at 8:29 EST , Service support ,
== END ==
PROVIDERS: PCP Family Medicine; Visit Provider Obstetrics & Gynecology
DX: Z12.31 Encounter for screening mammogram for malignant neoplasm of breast (principal)
CPT/HCPCS: 77063; 77067

== ENCOUNTER → 2022-02-11 | Outpatient (CLI) | payer OTHER, SELFPAY ==
[2022-02-11 09:07] LABS: Vitamin D,25 Hydroxy 51.5 ng/mL
[2022-02-11 09:28] LABS: Albumin, Serum 3.6 g/dL (3.2-5.0); BUN 17 mg/dL (7-18); BUN/Creat Ratio 19.7 RATIO (10-20); Creatinine, Serum 0.86 mg/dL (0.55-1.02); EST Glomerular Filtration Rate 72 mL/min (>60); Est Glom Filt Rate - Afr Amer 87 mL/min (>60); Glucose 106 mg/dL (74-106)
[2022-02-11 09:29] LABS: ALB/GLOB Ratio 1.1 RATIO (0.9-2.4); AST(SGOT) 32 U/L (15-37); Alanine Aminotransfer ALT/SGPT 43 U/L (13-56); Alkaline Phosphatase 52 U/L (45-117); Anion Gap 8 (5-15); Chloride 106 mmol/L (98-107); Cholesterol 149 mg/dL (200); Globulin 3.4 g/dL (2.2-4.2); High Density Lipoprotein 47 mg/dL; Potassium 3.9 mmol/L (3.5-5.1); Sodium Level 137 mmol/L (136-145); Thyroid Stim Hormone (TSH) 2.18 uIU/mL (0.358-3.74); Triglycerides 78 mg/dL; Very Low Density Lipoprotein 16 mg/dL (5-40)
== END | disposition home or self-care (01) ==
PROVIDERS: PCP Family Medicine; Referring Provider Family Medicine; Visit Provider Family Medicine
DX: Z00.00 Encounter for general adult medical examination without abnormal findings (principal)
CPT/HCPCS: 36415; 80053; 80061; 82306; 84443

== ENCOUNTER → 2022-08-01 | Outpatient (CLI) | payer OTHER, SELFPAY ==
--- NOTE | 2022-08-01 08:48 | BI_ITS ---
MAMMOGRAPHY - BILATERAL SCREENING REASON FOR EXAM: Female, 56 years old. Routine annual screening examination. PERTINENT HISTORY: Non-contributory. Remote bilateral breast reduction surgery. TECHNIQUE: Digital bilateral breast charity (3D mammographic acquisition) in the CC and MLO projections. 2-D mediolateral oblique (MLO) and craniocaudad (CC) views of both breasts were obtained. CAD: Full Field Digital Mammography with Computer Added Detection was performed. COMPARISON: Comparison is made with prior study dated 08/03/2021 and 08/03/2020. FINDINGS: Breast Composition: The breasts are almost entirely fatty. There are no dominant masses or suspicious calcifications. Stable small calcified nodules in the retroareolar region of the left breast. Stable small benign-appearing bilateral axillary lymph nodes. No other significant abnormalities are identified. There has been no significant change since the prior study. BI/SCRN MAMM (CAD)W/CHARITY BILAT IMPRESSION: Stable bilateral screening mammogram. Yearly follow-up mammogram recommended. (A) ASSESSMENT CATEGORY: BIRADS Category 2: Benign. A letter regarding these results will be sent to the patient by the facility within 30 days. Approximately 10% of breast cancers are not detected by mammography. A normal mammogram should not delay biopsy of a clinically suspicious abnormality. [id number] Electronically Signed: Aden Zacarias MD at 10:58 EST ,
== END | disposition home or self-care (01) ==
LOC: OPBI 08:45
PROVIDERS: PCP Family Medicine; Referring Provider Obstetrics & Gynecology Gynecology; Visit Provider Obstetrics & Gynecology Gynecology
DX: Z01.419 Encounter for gynecological examination (general) (routine) without abnormal findings (principal); Z12.31 Encounter for screening mammogram for malignant neoplasm of breast; N63.20 Unspecified lump in the left breast, unspecified quadrant
CPT/HCPCS: 77063; 77067

== ENCOUNTER → 2023-03-18 | Outpatient (CLI) | payer OTHER, SELFPAY ==
[2023-03-18 09:17] LABS: AST(SGOT) 32 U/L (15-37); Alanine Aminotransfer ALT/SGPT 44 U/L (13-56); Albumin, Serum 3.5 g/dL (3.2-5.0); Alkaline Phosphatase 56 U/L (45-117); Anion Gap 6 (5-15); BUN 18 mg/dL (7-18); Calcium,Total 8.6 mg/dL (8.5-10.1); Chloride 106 mmol/L (98-107); Cholesterol 166 mg/dL (200); EST Glomerular Filtration Rate 69 mL/min (>60); Est Glom Filt Rate - Afr Amer 83 mL/min (>60); Globulin 3.6 g/dL (2.2-4.2); Glucose 110 mg/dL (74-106); High Density Lipoprotein 46 mg/dL; Potassium 4.1 mmol/L (3.5-5.1); Protein, Total 7.1 g/dL (6.4-8.2); Sodium Level 137 mmol/L (136-145); Triglycerides 122 mg/dL; Very Low Density Lipoprotein 24 mg/dL (5-40)
== END | disposition home or self-care (01) ==
LOC: LAB 08:00
PROVIDERS: PCP Family Medicine; Referring Provider Family Medicine; Visit Provider Family Medicine
DX: Z00.00 Encounter for general adult medical examination without abnormal findings (principal); E78.5 Hyperlipidemia, unspecified
CPT/HCPCS: 36415; 80053; 80061; 84443

== ENCOUNTER → 2023-08-21 | Outpatient (CLI) | payer OTHER, SELFPAY ==
--- NOTE | 2023-08-21 08:29 | BI_ITS ---
MAMMOGRAPHY - BILATERAL SCREENING 3-D TOMOSYNTHESIS REASON FOR EXAM: Female, 57 years old. Routine annual screening mammogram. PERTINENT HISTORY: History of bilateral breast reduction surgery. TECHNIQUE: 2-D mammograms and 3-D Tomosynthesis of the breast (s) were performed. CAD was performed. COMPARISON: August 01, 2022, August 03, 2021 FINDINGS: The breast composition is almost entirely fat. Stable normal lymph nodes and scattered benign calcifications. No dominant masses, suspicious microcalcifications, asymmetries, skin thickening or nipple retraction. BI/SCRN MAMM (CAD)W/CHARITY BILAT IMPRESSION: No interval change and no mammographic signs of malignancy. Yearly screening mammogram recommended. ASSESSMENT CATEGORY: BIRADS Category 2: Benign. A letter regarding these results will be sent to the patient by the facility within 30 days. FOLLOW UP RECOMMENDATION: Yearly follow up mammogram recommended. (A) Approximately 10% of breast cancers are not detected by mammography. A normal mammogram should not delay biopsy of a clinically suspicious abnormality. Electronically Signed: Wilder Jones MD at 11:07 EST ,
--- OUTSIDE RECORDS SUMMARY | 2023-08-21 08:34 | XMS RPT_ITS | CCD ---
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 CRUZ Primary Care Unav ailable Allergies Allergy Classification Reported Allergen(s) Allergy Type Date of Onset Reaction(s) Facility (1 source) Lisinopril; Translations: [lisinopril] Drug Allergy cough [facility] (1 source) NITROFURANTOIN, MACROCRYSTALS / Nitrofurantoin, Monohydrate; Translations: [nitrofurantoin] Drug Allergy rash [facility] Medications Current Medications Medication Drug Class(es) Dates Sig (Normalized) Sig (Original) Ascorbic Acid (1 source) Vitamin C Start: 05-29-2022 Vitamin C qDay, 0 Refill(s) Start Date: 05/29/22 Status: Ordered atenolol 50 mg oral tablet (1 source) beta-Adrenergic Debra Start: 05-29-2022 atenolol 50 mg oral tablet Dose : 50 mg = 1 tab(s), Oral, qDay, # 30 tab(s), 0 Refill(s) Start Date: 05/29/22 Status: Ordered clotrimazole 10 mg/ml topical cream (1 source) Azole Antifungal Start: 05-29-2022 clotrimazole 1% topical cream Apply 1 william, Topical, BID, # 60 gram(s), 0 Refill(s), 111.9 Start Date: 05/29/22 Status: Ordered Cranberry preparation (1 source) Non-Standardized Food Allergenic Extract, Non-Standardized Plant Allergenic Extract Start: 05-29-2022 take 1 tablet by mouth once daily cranberry oral tablet Dose = 1 tab(s), Oral, Daily, 0 Refill(s) Start Date: 05/29/22 Status: Ordered estradiol 0.1 mg/ml vaginal cream (1 source) Estrogen Start: 05-29-2022 estradiol 0.1 mg/g vaginal cream Vaginal, 2X/week, 0 Refill(s) Start Date: 05/29/22 Status: Ordered losartan potassium 50 mg oral tablet (1 source) Angiotensin 2 Receptor Debra Start: 05-29-2022 losartan 50 mg oral tablet Dose : 50 mg = 1 tab(s), Oral, qDay, # 30 tab(s), 0 Refill(s) Start Date: 05/29/22 Status: Ordered Multivitamin preparation (1 source) Start: 05-29-2022 take 1 tablet by mouth once daily Multivitamin Dose = 1 tab(s), Oral, Daily, 0 Refill(s) Start Date: 05/29/22 Status: Ordered Probiotic (1 source) Start: 05-29-2022 Probiotic 0 Refill(s) Start Date: 05/29/22 Status: Ordered rosuvastatin 5 mg oral capsule (1 source) HMG-CoA Reductase Inhibitor Start: 05-29-2022 rosuvastatin 5 mg oral capsule Dose : 5 mg = 1 cap(s), Oral, qDay, # 30 cap(s), 0 Refill(s) Start Date: 05/29/22 Status: Ordered Problems Problem Classification Problem Date Documented Da te Episodic/Chronic Other screening for suspected conditions (not mental disorders or infectious disease) (2 sources) Encounter for screening for malignant neoplasm of cervix; Translations: [Encounter for screening for malignant neoplasm of cervix] Onset: 05-29-2022 Episodic Results Test Name Value Interpretation Reference Range Facil ity Encounters Encounter Date Encounter Type Care Provider Facility Start: 05-29-2022 End: 06-03-2022 ambulatory ISABEL LIU MD Facility:B Start: 05-29-2022 End: 06-03-2022 Encounter for gynecological examination (general) (routine) without abnormal findings ISABEL LIU MD Facility:[facility] Start: 05-29-2022 End: 06-02-2022 Outreach [facility] ISABEL LIU MD [facility] Procedures Date Procedure Procedure Detail Performing Clinician History of left hip replacement ISABEL LIU MD History of right hip replacement ISABEL LIU MD Reduction mammaplasty ISABEL LIU MD Payers Date Payer Category Payer Unknown [id number] 1965 Unknown [id number] Social History Date Type Detail Facility Start: 05-29-2022 Tobacco smoking status Never s moked tobacco (finding) [facility] Sex Assigned At Sex [facility] Evaluation + Plan note 05-29-2022 Radiology Note Date & Type Note Facility 05-29-2022 Evaluation + Plan note Future Scheduled TestsMA Mammo Screening Bilateral w/ Ajith 05/29/22 [facility] Progress note 03-07-2021 Note Date & Type Note Facility 03-07-2021 Note HNO ID: [id number] Author: Mary Carmen Rose MD Service: ? Author Type: Physician Type: Progress Notes Filed: 03/07/2021 9:05 AM Note Text: Shonna is a 55 year old who presents for an annual gynecologic exam without complaints. On Estrogen cream for recurrent UTI- has helped immensely. Saw urology who agreed and also added abx prn. Postmenopausal: No. Menstrual cycle every 6 weeks Flow 3-7 days- very light HRT use: No. Last Pap: 10/28/2017 normal HPV: 10/21/2017 negative History of abnormal pap: No Last mammogram: 2019 normal History of abnormal mammogram: No Sexually active: Yes History of STDS: None Patient concerns for STD exposure: No. Pain with intercourse: No Postcoital bleeding: No Hot flashes: yes Night sweats: No Vaginal dryness: No Exercise: not routine but active Diet: balanced OB History T0 L0 SAB0 TAB0 Ectopic0 Multiple0 Live Births0 PAST MEDICAL HISTORY Diagnosis Date - Compression of brain (HCC) defect - Essential hypertension, malignant - Headache(784.0) - Pure hypercholesterolemia PAST SURGICAL HISTORY Procedure Laterality Date - HIP INJECTION Left 10/28/2017 - L'SCOPE DX W/WO BRUSHINGS/WASHINGS Laparoscopy - PAST SURGICAL HISTORY OF 2007 left breast biopsy--benign - REDUCTION OF LARGE BREAST 10/29 - TOTAL HIP REPLACEMENT Right 10/21/2017 - TOTAL HIP REPLACEMENT Left 03/2019 FAMILY HISTORY Problem Relation Age of Onset - Hypertension Mother - other (fibrocystic breast) Mother - Heart Father - Hypertension Father - Arthritis Sister SOCIAL HISTORY Social History Tobacco Use - Smoking status: Never Smoker - Smokeless tobacco: Never Used Vaping Use - Vaping Use: Never used Substance Use Topics - Alcohol use: No - Drug use: No REVIEW OF SYSTEMS Abdomen: No abdominal pain, nausea, vomiting, diarrhea, or constipation. No bloating, early satiety, indigestion, or increased flatulence. Bladder: No dysuria, gross hematuria, urinary frequency, urinary urgency, or incontinence Breast: No breast lumps, nipple d/c, overlying skin changes, redness or skin retraction Allergies and current medication updated:Yes EXAM: BP 144/84 Ht 5' 6.339 (1.69m) Wt 246 lb (111.6kg) LMP 01/28/2021 BMI 39.30 kg/(m2). GENERAL: pleasant, female in no apparent distress HEENT: Normocephalic, atraumatic, mucus membranes moist and no lesions NECK: Supple, full range of motion, no adenopathy and thyroid normal DERMATOLOGY: Normal, without lesions, non-icteric and non-hirsute BREAST: soft, non-tender, symmetric, no dominant mass, normal nipple-areolar complex, no lymphadenopathy and no nipple discharge. Well healed reduction scars ABDOMEN: soft, non-tender and no masses PELVIC: external genitalia normal, normal Bartholin's glands, urethra, Wauseon's glands, no vulvar lesions, no cervical lesions, good vaginal support, physiologic discharge present, normal appearing perineal body and perianal region BIMANUAL: uterus top normal size, no adnexal masses, non-tender and fibroid(s) palpable RECTOVAGINAL: deferred. NEURO: alert and oriented x3,exam grossly non-focal EXTREMITIES: normal ASSESSMENT/PLAN: 1) Health maintenance: Pap/HPV up to date. Mammogram ordered Mammogram up to date Nutrition, exercise and routine health maintenance exams reviewed. Colon cancer screening: up to date with screening 2) Follow up one year or sooner as needed 3) continue vag E for recurrent UTI Mary Carmen Hicks MD [facility] Progress note 03-07-2021 Note Date & Type Note Facility 03-07-2021 Note HNO ID: [id number] Author: Renetta Poe Ma Service: ? Author Type: ? Type: Progress Notes Filed: 03/07/2021 9:05 AM Note Text: Bpm Solution Architect offered: Patient declines. [facility] course Narrative Note Date & Type Note Facility Hospital course Narrative No data available for this section [facility] Hospital Discharge instructions Note Date & Type Note Facility Hospital Discharge instructions No data available for this section [facility] Progress note Note Date & Type Note Facility Progress note No data available for this section [facility] Summary Purpose Family History No Family History Records FoundNo Family History Records Found Advance Directives No Advanced Directives Records FoundNo Advanced Directives Records Found Additional Source Comments INFORMATION SOURCE (unrecogn ized section and content) DATE CREATED AUTHOR AUTHOR'S ORGANIZ ATION 06/21/2022 [facility] ([place]) Care Team (unrecognized sect ion and content) Care Team Personnel Name: ANTHONY STEPHENS MD Member Role: Primary Care Physician Address: Address: [address] [place] [address]- [place] Care Team Related Persons Name: JOHN JOSUE FOR RECORDS PERTAINING TO PATIENTS WHO ARE OR HAVE BEEN ENROLLED IN A CHEMICAL DEPENDENCY/SUBSTANCEABUSE PROGRAM, SOME INFORMATION MAY BE OMITTED. This clinical summary was aggregated from multiple sources. Caution should be exercised in using it in the provision of clinical care. This summary normalizes information from multiple sources, and as a consequence, information in this document may materially change the coding, format and clinical context of patient data. In addition, data may be omitted in some cases. CLINICAL DECISIONS SHOULD BE BASED ON THE PRIMARY CLINICAL RECORDS. [employer] [facility]. provides no warranty or guarantee of the accuracy or completeness of information in this document.
== END | disposition home or self-care (01) ==
LOC: OPBI 08:27
PROVIDERS: PCP Family Medicine; Referring Provider Obstetrics & Gynecology Gynecology; Visit Provider Obstetrics & Gynecology Gynecology
DX: Z12.31 Encounter for screening mammogram for malignant neoplasm of breast (principal)
CPT/HCPCS: 77063; 77067

== ENCOUNTER → 2024-05-17 | Outpatient (CLI) | payer OTHER, SELFPAY ==
[2024-05-17 09:21] LABS: ALB/GLOB Ratio 1.1 RATIO (0.9-2.4); AST(SGOT) 24 U/L (15-37); Alanine Aminotransfer ALT/SGPT 36 U/L (13-56); Albumin, Serum 3.6 g/dL (3.2-5.0); Alkaline Phosphatase 61 U/L (45-117); Anion Gap 7 (5-15); BUN 18 mg/dL (7-18); BUN/Creat Ratio 19.8 RATIO (10-20); Calcium,Total 9.1 mg/dL (8.5-10.1); Chloride 106 mmol/L (98-107); Cholesterol 170 mg/dL (200); Creatinine, Serum 0.91 mg/dL (0.55-1.02); EST Glomerular Filtration Rate 68 mL/min (>60); Est Glom Filt Rate - Afr Amer 82 mL/min (>60); Globulin 3.4 g/dL (2.2-4.2); Glucose 111 mg/dL (74-106); High Density Lipoprotein 51 mg/dL; Potassium 3.9 mmol/L (3.5-5.1); Sodium Level 139 mmol/L (136-145); Triglycerides 120 mg/dL; Very Low Density Lipoprotein 24 mg/dL (5-40)
== END | disposition home or self-care (01) ==
LOC: LAB 08:16
PROVIDERS: PCP Family Medicine; Referring Provider Family Medicine; Visit Provider Family Medicine
DX: E78.5 Hyperlipidemia, unspecified (principal)
CPT/HCPCS: 36415; 80053; 80061

== ENCOUNTER → 2024-08-24 | Outpatient (CLI) | payer OTHER, SELFPAY ==
--- NOTE | 2024-08-24 08:41 | BI_ITS ---
MAMMOGRAPHY - BILATERAL SCREENING 3-D TOMOSYNTHESIS REASON FOR EXAM: Female, 58 years old. SCREENING PERTINENT HISTORY: No significant family history. TECHNIQUE: 2-D mammograms and 3-D Tomosynthesis of the breast (s) were performed. CAD was performed. COMPARISON: 08/21/2023 FINDINGS: The breast composition is composed of scattered fibroglandular density. Scattered benign calcifications are seen. No dense spiculated masses or suspicious microcalcifications are identified. No architectural distortion is identified. There is no skin thickening or retraction. There has been no significant change since the prior study. BI/SCRN MAMM (CAD)W/CHARITY BILAT IMPRESSION: No mammographic signs of malignancy. Routine yearly mammograms recommended. ASSESSMENT CATEGORY: BIRADS Category 1: Negative. A letter regarding these results will be sent to the patient by the facility within 30 days. FOLLOW UP RECOMMENDATION: Yearly follow up mammogram recommended. (A) Approximately 10% of breast cancers are not detected by mammography. A normal mammogram should not delay biopsy of a clinically suspicious abnormality. Electronically Signed: Walter Solis MD at 19:20 EST ,
== END | disposition home or self-care (01) ==
LOC: OPBI 08:37
PROVIDERS: PCP Family Medicine; Referring Provider Obstetrics & Gynecology Gynecology; Visit Provider Obstetrics & Gynecology Gynecology
DX: Z12.31 Encounter for screening mammogram for malignant neoplasm of breast (principal)
CPT/HCPCS: 77063; 77067

== ENCOUNTER → 2025-05-13 | Outpatient (CLI) | payer OTHER, SELFPAY ==
[2025-05-13 10:36] LABS: AST(SGOT) 33 U/L (<=31); Alanine Aminotransfer ALT/SGPT 36 U/L (<=34); Albumin, Serum 4.3 g/dL (3.5-5.0); Alkaline Phosphatase 60 U/L (35-104); Anion Gap 14 (5-15); BUN 15 mg/dL (4-19); BUN/Creat Ratio 17.5 RATIO (10-20); Calcium,Total 9.3 mg/dL (7.6-11.0); Carbon Dioxide 20.6 mmol/L (21.0-32.0); Chloride 103 mmol/L (98-108); Cholesterol 165 mg/dL (<=200); Globulin 2.5 g/dL (2.2-4.2); Glucose 118 mg/dL (70-99); Low Density Lipoprotein Calc. 94 mg/dL; Potassium 4.1 mmol/L (3.3-5.1); Triglycerides 109 mg/dL; Very Low Density Lipoprotein 22 mg/dL (5-40); cholesterol:hdl ratio screen 3.38
== END | disposition home or self-care (01) ==
LOC: LAB 08:38
PROVIDERS: PCP Family Medicine; Referring Provider Family Medicine; Visit Provider Family Medicine
DX: E78.5 Hyperlipidemia, unspecified (principal)
CPT/HCPCS: 80053; 80061